=== PATIENT | male | born 1985 | race Two or more races ===

== ENCOUNTER 2017-06-02 10:09 | Inpatient (IN) | payer OTHER ==
[~2017-06-02] VITALS: Ht 154.9 cm; Wt 86.2 kg
[2017-06-02] VITALS (12 sets, daily range): BP systolic 87–104; BP diastolic 48–61
[2017-06-02] MEDS ORDERED: ELIQUIS5 MG PO (10:28)
[2017-06-02 10:52] LABS: MEAN CORPUSCULAR HEMOGLOBIN 24.9 PG (27.0-31.0); MEAN CORPUSCULAR HGB CONC 30.9 G/DL (32.0-36.0); MEAN CORPUSCULAR VOLUME 81 FL (80-99); MEAN PLATELET VOLUME 7.6 FL (6.5-10.1); PLATELET COUNT 169 K/UL (150-450); RED BLOOD COUNT 4.99 M/UL (4.70-6.10); RED CELL DISTRIBUTION WIDTH 14.1 % (11.6-14.8); WHITE BLOOD COUNT 7.2 K/UL (4.8-10.8)
[2017-06-02 11:01] LABS: ALANINE AMINOTRANSFERASE 10 U/L (12-78); ALBUMIN/GLOBULIN RATIO 0.7 (1.0-2.7); ANION GAP 11 mmol/L (5-15); ASPARTATE AMINO TRANSFERASE 19 U/L (15-37); CALCIUM 8.6 MG/DL (8.5-10.1); CARBON DIOXIDE 23 MMOL/L (21-32); CHLORIDE 103 MMOL/L (98-107); CREATININE 1.1 MG/DL (0.55-1.30); GLOMERULAR FILTRATION RATE > 60 mL/min (>60); LIPASE 90 U/L (73-393); POTASSIUM 4.3 MMOL/L (3.5-5.1); SODIUM 137 MMOL/L (136-145); TOTAL PROTEIN 6.9 G/DL (6.4-8.2)
--- NOTE | 2017-06-02 11:08 | Emergency Room Report ---
History of Present Illness General Chief Complaint: Flu Like Symptoms Source: Patient Present Illness HPI Patient presents emergency department today complaining of fever body aches and chills. Patient has a history of spina bifida. Patient does self catheterizations. He states that he might have injured his urethra yesterday trying to catheterize himself. Today he tried to catheterize himself in the morning and has some bleeding back and urine output. Unfortunately he presents now complaining of fever and and suprapubic discomfort. We attempted to do a in and out catheter and there was significant blood and resistance. No other complaints are noted. Symptoms noted to be moderate to severe.No other modifying factors. No other associated signs and symptoms. No other complaints were noted. Allergies: Coded Allergies: LATEX (Verified Allergy, Unknown, 06/02/17) Patient History Past Medical History: other - spina bifida Past Surgical History: none Pertinent Family History: none Social History: Denies: smoking, alcohol use, drug use Reviewed Nursing Documentation: PMH: Agreed, PSxH: Agreed Nursing Documentation-PMH Past Medical History: No History, Except For Review of Systems All Other Systems: negative except mentioned in HPI Physical Exam Vital Signs Date Time Temp Pulse Resp B/P (MAP) Pulse Ox O2 Delivery O2 Flow Rate FiO2 06/02/17 10:05 100.6 100 18 81/49 96 Room Air Sp02 EP Interpretation: reviewed, normal General Appearance: alert, mild distress Head: normocephalic, atraumatic Eyes: bilateral eye normal inspection ENT: normal ENT inspection, hearing grossly normal, normal voice Neck: normal inspection, full range of motion, supple, no bony tend Respiratory: normal inspection, lungs clear, normal breath sounds, no respiratory distress, no retraction, no wheezing Cardiovascular #1: no edema, tachycardia Gastrointestinal: normal inspection, normal bowel sounds, non tender, soft, no guarding, no hernia Genitourinary: no CVA tenderness Musculoskeletal: other - chronic leg swelling dressing intact Neurologic: normal inspection, alert, responsive, speech normal, other - paraplegic Psychiatric: normal inspection, judgement/insight normal, mood/affect normal Skin: normal inspection, normal color, other - chronic lowerextremity rashes Procedures Critical Care Time Critical Care Time Patient had a critical medical condition which untreated could potentially result in life or limb threatening injury. Total critical care time excluding procedures was approximately 45 minutes. Medical Decision Making Diagnostic Impression: Primary Impression: Severe sepsis Additional Impressions: Urinary retention Spina bifida ER Course Patient presents emergency department today complaining of urinary retention fever bodyaches. Differential considerations include sepsis, septic shock, UTI just to name a few.Given the severity of the patient's presentation I felt this is a highly complex patient. This patient required extensive workup. Patient' s laboratory workup shows evidence UTI. Initially was very difficult to pass a Finley but however with some persistence we're able to pass a Finley. We did however obtain a urology consult. Patient had good urine output. Patient was tachycardic and hypotensive therefore patient was given fluid boluses blood cultures were obtained patient was started on IV antibiotics. Patient's lactic acid level was elevated. Therefore a repeat Dr. Garner level was ordered and patient had a repeat exam which showed improve perfusion. Patient had good blood pressure improvement with fluid boluses. However given severe patient presentation patient will require admission to the intensive care unit. Case was discussed with Dr. Bee for admission. Patient will be admitted to ICU for further treatment. Patient required a PICC line placement. It was ordered. Patient was completely awake and it was felt that doing a central line on him likely will be uncomfortable and that patient could be better served by PICC line as patient is to prophylaxis at this time. Labs Test 06/02/17 10:20 06/02/17 11:50 06/02/17 12:10 White Blood Count 7.2 K/UL (4.8-10.8) Red Blood Count 4.99 M/UL (4.70-6.10) Hemoglobin 12.4 G/DL (14.2-18.0) Hematocrit 40.2 % (42.0-52.0) Mean Corpuscular Volume 81 FL (80-99) Mean Corpuscular Hemoglobin 24.9 PG (27.0-31.0) Mean Corpuscular Hemoglobin Concent 30.9 G/DL (32.0-36.0) Red Cell Distribution Width 14.1 % (11.6-14.8) Platelet Count 169 K/UL (150-450) Mean Platelet Volume 7.6 FL (6.5-10.1) Neutrophils (%) (Auto) % (45.0-75.0) Lymphocytes (%) (Auto) % (20.0-45.0) Monocytes (%) (Auto) % (1.0-10.0) Eosinophils (%) (Auto) % (0.0-3.0) Basophils (%) (Auto) % (0.0-2.0) Differential Total Cells Counted 100 Neutrophils % (Manual) 73 % (45-75) Lymphocytes % (Manual) 2 % (20-45) Monocytes % (Manual) 4 % (1-10) Eosinophils % (Manual) 0 % (0-3) Basophils % (Manual) 0 % (0-2) Band Neutrophils 21 % (0-8) Platelet Estimate Adequate Platelet Morphology Normal Hypochromasia 1+ Sodium Level 137 MMOL/L (136-145) Potassium Level 4.3 MMOL/L (3.5-5.1) Chloride Level 103 MMOL/L (98-107) Carbon Dioxide Level 23 MMOL/L (21-32) Anion Gap 11 mmol/L (5-15) Blood Urea Nitrogen 27 mg/dL (7-18) Creatinine 1.1 MG/DL (0.55-1.30) Estimat Glomerular Filtration Rate > 60 mL/min (>60) Glucose Level 87 MG/DL (74-106) Lactic Acid Level 3.50 mmol/L (0.66-2.22) Calcium Level 8.6 MG/DL (8.5-10.1) Total Bilirubin 0.7 MG/DL (0.2-1.0) Aspartate Amino Transf (AST/SGOT) 19 U/L (15-37) Alanine Aminotransferase (ALT/SGPT) 10 U/L (12-78) Alkaline Phosphatase 96 U/L (46-116) Total Protein 6.9 G/DL (6.4-8.2) Albumin 2.9 G/DL (3.4-5.0) Globulin 4.0 g/dL Albumin/Globulin Ratio 0.7 (1.0-2.7) Lipase 90 U/L (73-393) Urine Color Brown Urine Appearance Cloudy Urine pH 8 (4.5-8.0) Urine Specific [place] 1.010 (1.005-1.035) Urine Protein 3+ (NEGATIVE) Urine Glucose (UA) Negative (NEGATIVE) Urine Ketones 1+ (NEGATIVE) Urine Occult Blood 5+ (NEGATIVE) Urine Nitrite Positive (NEGATIVE) Urine Bilirubin Negative (NEGATIVE) Urine Urobilinogen Normal MG/DL (0.0-1.0) Urine Leukocyte Esterase 3+ (NEGATIVE) Urine RBC Tntc /HPF (0 - 0) Urine WBC 20-30 /HPF (0 - 0) Urine Squamous Epithelial Cells Occasional /LPF Urine Bacteria Moderate /HPF (NONE) EKG Diagnostic Results Rate: tachycardiac Rhythm: NSR ST Segments: no acute changes Rhythm Strip Diag. Results EP Interpretation: yes Rate: 133 Rhythm: no PVC's, no ectopy, other - sinus tachycardi Chest X-Ray Diagnostic Results Chest X-Ray Diagnostic Results : Chest X-Ray Ordered: Yes # of Views/Limited/Complete: 1 View Indication: Chest Pain EP Interpretation: Yes Interpretation: no consolidation, no effusion, no pneumothorax, no acute cardiopulmonary disease Impression: No acute disease Last Vital Signs Date Time Temp Pulse Resp B/P (MAP) Pulse Ox O2 Delivery O2 Flow Rate FiO2 06/02/17 11:00 139 18 Room Air 06/02/17 11:00 99.7 87/61 96 Status: improved Disposition: ADMITTED INPATIENT Condition: Critical JESSE OTT M.D. Jun 02, 2017 11:08
[2017-06-02 11:12] LABS: REFLEX LACTIC ACID YES OR NO YES
[2017-06-02] MEDS ORDERED: cefTRIAXone 1 GM in NS 55 ML IVPB ONE (11:15)
[2017-06-02] MEDS ORDERED: Azithromycin 500 MG in D5W 275 ML IVPB ONE (11:15)
[2017-06-02 11:34] LABS: BAND NEUTROPHILS % (MANUAL) 21 % (0-8); BASOPHILS % (MANUAL) 0 % (0-2); EOSINOPHILS % (MANUAL) 0 % (0-3); HYPOCHROMASIA 1+; LYMPHOCYTES % (MANUAL) 2 % (20-45); NEUTROPHILS % (MANUAL) 73 % (45-75); PLATELET ESTIMATE ADEQUATE; PLATELET MORPHOLOGY NORMAL; TOTAL CELLS COUNTED 100
[2017-06-02] MEDS ORDERED: Azithromycin 500mg Inj IV ONE (11:57)
[2017-06-02 12:13] LABS: APPEARANCE,URINE CLOUDY; KETONES,URINE 1+ (NEGATIVE); LEUKOCYTE ESTERASE ,URINE 3+ (NEGATIVE); NITRITE,URINE POSITIVE (NEGATIVE); PH,URINE 8 (4.5-8.0); PROTEIN,URINE 3+ (NEGATIVE); UROBILINOGEN,URINE NORMAL MG/DL (0.0-1.0)
[2017-06-02 12:16] LABS: RBC,URINE TNTC /HPF (0 - 0); SQUAMOUS EPITHELIAL CELL,UR OCCASIONAL /LPF (NONE/OCC); WBC,URINE 20-30 /HPF (0 - 0)
[2017-06-02 12:17] LABS: BACTERIA,URINE MODERATE /HPF
[2017-06-02] MEDS ORDERED: LORazepam Inj 2mg/ml 1ml IV PRN (14:00)
[2017-06-02] MEDS ORDERED: Miralax 17gm pkt ORAL PRN (14:00)
[2017-06-02] MEDS ORDERED: Morphine Sulfate 4mg/ml Inj IVP PRN (14:00)
[2017-06-02] MEDS ORDERED: Albuterol/Ipratropium 3ml neb HHN PRN (14:00)
[2017-06-02] MEDS ORDERED: Amikacin Rx to dose MISC PRN (15:30)
--- NOTE | 2017-06-02 16:58 | Diagnostic Imaging Report ---
Indication: COUGH Technique: One view of the chest Comparison: none Findings: Lungs and pleural spaces are clear. Heart size is normal. Impression: No acute process This agrees with the preliminary interpretation provided by the emergency room physician
[2017-06-02] MEDS ORDERED: Ertapenem 1 GM in NS 55 ML IV SCH ×2 (17:00→20:00)
[2017-06-02] MEDS ORDERED: Vancomycin 1250mg/D5W 250ml 250 ML IVPB ONE (17:00)
[2017-06-02] MEDS ORDERED: Amikacin 1,200 MG in NS 110 ML IV ONE (20:00)
[2017-06-02] MEDS: Heparin 5000 units/ml inj SUBQ SCH (21:04)
[2017-06-02] MEDS ORDERED: Vancomycin 1 GM in D5W 275 ML IV SCH (23:45)
[2017-06-03] VITALS (20 sets, daily range): BP systolic 91–122; BP diastolic 49–80
--- NOTE | 2017-06-03 00:45 | Consultation ---
DATE OF CONSULTATION: 06/02/2017 UROLOGY CONSULTATION: CONSULTING PHYSICIAN: Adriano Quan M.D. ATTENDING/REFERRING PHYSICIAN: Dimitri Polanco M.D. CHIEF COMPLAINT/HISTORY OF PRESENT ILLNESS: I was asked by Dr. Polanco in the emergency room to evaluate this 31-year-old pleasant gentleman with history of spina bifida and neurogenic bladder regarding episode of difficulty catheterizing and urinary tract infection/hematuria. Briefly, the patient has history of spina bifida at age 14 or 15. He underwent a cysto-augmentation with a piece of intestine to increase the capacity of his bladder. The patient's bladder is neurogenic and he self-catheterizes several times a day to drain his bladder. Yesterday, he struggled a bit to catheterize and today when he attempted to do the same, he noted significant bleeding. He presented to the hospital with the same and also evidence of fevers and suprapubic discomfort. Staff was able to pass a coude catheter and he was placed on IV antibiotics and I was asked to evaluate the patient regarding the same. PAST MEDICAL HISTORY: Spina bifida. PAST SURGICAL HISTORY: Cysto-augmentation with a segment of intestine. MEDICATIONS: Please see the chart for current medications, administration details. ALLERGIES: Include latex. SOCIAL HISTORY: Unremarkable tobacco, alcohol, or drug use. FAMILY HISTORY: Noncontributory. REVIEW OF SYSTEMS: A 12-system review of systems is essentially unremarkable outside of what is described above. PHYSICAL EXAMINATION: GENERAL: The patient is a younger gentleman, awake, alert, oriented x4, pleasant, and in no obvious distress. HEENT: NC/AT. EOMI. Oropharynx clear. NECK: Supple. Full range of motion. CHEST: Within normal limits. ABDOMEN: Soft, nontender, and nondistended. EXTREMITIES: Warm and well perfused. No cyanosis, clubbing, or edema. BACK: No CVA tenderness to percussion. NEUROLOGIC: Notable for spina bifida. GENITOURINARY: Uncircumcised male phallus with a Finley catheter in place with somewhat cloudy urine output and significant mucus. There are bilateral descended testes and cord structures with no masses or tenderness to palpation. LABORATORY DATA: White blood cell count 7.2, hematocrit 40.2, platelets 169,000. Sodium 137, potassium 4.3, chloride 103, bicarbonate 23, BUN 27, creatinine 1.1, glucose 87, calcium 8.6. LFTs within normal limits. Urinalysis, specific gravity 1.010, pH 8.0. Dip test notable for 3+ protein, 1+ ketones, 5+ occult blood, positive nitrites, and 3+ leukocyte esterase. Microanalysis with too numerous to count red blood cells per high-powered field, blood cells per high-powered field, and moderate bacteria seen. DIAGNOSTIC IMAGING: Chest x-ray, no significant findings. ASSESSMENT AND PLAN: In summary, the patient is a 31-year-old gentleman with history of spina bifida and neurogenic bladder secondary to same. He underwent cysto-augmentation with a segment of intestine approximately 17 years ago. He self-catheterizes usually without difficulty, but began having problems last night. Today, he noted blood when attempted to catheterize and developed fevers and suprapubic pain and distention. He first came to the emergency room where coude catheter was placed with relief of his distention. He was placed on intravenous antibiotics and fluids and brought to the floor. Physical exam reveals a gentleman with spina bifida with a Finley catheter in place with cloudy urine output with significant mucus. Laboratory data was notable for evidence of urinary tract infection. There is no relevant diagnostic imaging. Today at the bedside, I hand-irrigated the patient's catheter and removed mucus first in the augmented bladder. At the conclusion of irrigation, it was hand-irrigating easily and cleanly with no further mucus. We should continue the patient on intravenous fluids and intravenous antibiotics until his infection is improved at which point, he can be discharged home on intravenous or p.o. antibiotics. The patient can have his catheter out in 2-3 days' time to allow him to resume self-catheterization, but I would leave it in until then to allow the injury from previous attempts of catheterization to heal. Thank you for allowing me to participate in the care of this nice young man. Please do not hesitate to contact me if any questions that you may further have regarding his care. I will be happy to see him with you as needed. Adriano Quan M.D. DR: Jojo JOB#: [id number] CC:
[2017-06-03] MEDS ORDERED: Levophed 4mg/4mL Inj IV ONE (00:58)
--- NOTE | 2017-06-03 04:16 | Emergency Room Report ---
History of Present Illness General Chief Complaint: Flu Like Symptoms Source: Patient, Medical Record Present Illness Allergies: Coded Allergies: LATEX (Verified Allergy, Unknown, 06/02/17) Nursing Documentation-H Past Medical History: No History, Except For Hx Cancer: No Hx Gastrointestinal Problems: No Hx Neurological Problems: No Hx Paralysis: Yes Physical Exam Vital Signs Date Time Temp Pulse Resp B/P (MAP) Pulse Ox O2 Delivery O2 Flow Rate FiO2 06/02/17 10:05 100.6 100 18 81/49 96 Room Air Procedures Central Line Central Line : Consent: Verbal Central Line Lumen: triple Maximal Sterile Barrier Tech: yes cap, yes mask, yes sterile gown, yes sterile gloves, yes large sterile sheet, yes hand hygiene, yes chlorhexidine prep Central Line Postion: femoral (L) Anesthesia: local cc's of anesthesia: 10 Complications: none Attempts: Other - So Patient Tolerated: Well Complications: None Progress Patient was admitted for sepsis and UTI. His blood pressure was low and Dr. Bee order levophed. 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 He is currently taking Elequis. I was called from ICU nurse to place a central line. Patient only one central line in his groin. On the right side he has a large surgical scar over the inguinal area. He has diminished pulse in this area. He has strong pulse in the left femoral area. I attempted to cannulate the left femoral vein. I was able to aspirate easily but unable to thread the guidewire. The blood aspirated clots very easily. Is a remove the guidewire and will be clots at the distal tip. After several attempts, I stop with the central line. 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 Patient blood pressure had already improved by the time I saw the patient. His systolic blood pressure was in the high 90s and low 100. I ordered more IV fluid. Patient may need a PICC line but this can be done in the morning. Doesn't want any line in his neck or chest. Medical Decision Making Diagnostic Impression: Primary Impression: Severe sepsis Additional Impressions: Urinary retention Spina bifida Last Vital Signs Date Time Temp Pulse Resp B/P (MAP) Pulse Ox O2 Delivery O2 Flow Rate FiO2 06/03/17 03:00 119 22 95/50 97 Room Air 06/03/17 00:00 99.1 Disposition: ADMITTED INPATIENT Condition: Critical Referrals: [employer] [facility] AKIRA TURK (PCP) SHIRA MONGE M.D. Jun 03, 2017 04:16
[2017-06-03] MEDS ORDERED: Vancomycin 750mg/NS 250ml 250 ML IVPB SCH (05:00)
[2017-06-03 06:28] LABS: MEAN CORPUSCULAR HEMOGLOBIN 26.9 PG (27.0-31.0); MEAN CORPUSCULAR HGB CONC 33.7 G/DL (32.0-36.0); MEAN CORPUSCULAR VOLUME 80 FL (80-99); MEAN PLATELET VOLUME 7.7 FL (6.5-10.1); PLATELET COUNT 89 K/UL (150-450); RED BLOOD COUNT 3.73 M/UL (4.70-6.10); RED CELL DISTRIBUTION WIDTH 14.2 % (11.6-14.8); WHITE BLOOD COUNT 7.8 K/UL (4.8-10.8)
[2017-06-03] MEDS: Heparin 5000 units/ml inj SUBQ SCH (07:07)
[2017-06-03 08:14] LABS: ALANINE AMINOTRANSFERASE 12 U/L (12-78); ALBUMIN/GLOBULIN RATIO 0.6 (1.0-2.7); ANION GAP 9 mmol/L (5-15); ASPARTATE AMINO TRANSFERASE 20 U/L (15-37); BILIRUBIN,DIRECT < 0.1 MG/DL (0.0-0.3); CALCIUM 7.3 MG/DL (8.5-10.1); CARBON DIOXIDE 21 MMOL/L (21-32); CHLORIDE 110 MMOL/L (98-107); CREATININE 0.7 MG/DL (0.55-1.30); GLOMERULAR FILTRATION RATE > 60 mL/min (>60); POTASSIUM 3.4 MMOL/L (3.5-5.1); SODIUM 140 MMOL/L (136-145); TOTAL PROTEIN 5.3 G/DL (6.4-8.2)
--- NOTE | 2017-06-03 08:24 | History and Physical ---
History of Present Illness General Date patient seen: Jun 02, 2017 Reason for Hospitalization: Flu Like Symptoms Present Illness HPI 31 year old male with hx of spina bifida, bed bound presented to emergency department complaining of fever body aches and chills. He states that he might have injured his urethra yesterday trying to catheterize himself. Today he tried to catheterize himself in the morning and has some bleeding back and urine output. Unfortunately he presents now complaining of fever and and suprapubic discomfort. ER physician attempted to do a in and out catheter and there was significant blood and resistance. Urologist was called already prior to transfer to ICU. Allergies: Coded Allergies: LATEX (Verified Allergy, Unknown, 06/02/17) Medication History Scheduled Apixaban (Eliquis), 7 MG PO DAILY, (Reported) Patient History Healthcare decision maker Resuscitation status Full Code Advanced Directive on File Past Medical/Surgical History Past Medical/Surgical History: (1) Spina bifida (2) Urinary retention Review of Systems Constitutional: Reports: fever, malaise, weakness All Other Systems: negative except mentioned in HPI Physical Exam General Appearance: WD/WN Lines, tubes and drains: peripheral HEENT: normocephalic, atraumatic Neck: non-tender, normal alignment Respiratory/Chest: chest wall non-tender, lungs clear Cardiovascular/Chest: normal peripheral pulses, normal rate, no JVD Abdomen: normal bowel sounds, soft, no organomegaly Genitourinary/Rectal: normal genital exam Last 24 Hour Vital Signs Date Time Temp Pulse Resp B/P (MAP) Pulse Ox O2 Delivery O2 Flow Rate FiO2 06/03/17 08:00 99.0 121 16 106/66 97 Room Air 06/03/17 07:00 111 20 108/63 95 Room Air 06/03/17 06:00 115 21 103/60 95 Room Air 06/03/17 05:00 116 17 91/51 97 Room Air 06/03/17 04:00 98.9 118 14 95/49 97 Room Air 06/03/17 04:00 117 06/03/17 03:00 119 22 95/50 97 Room Air 06/03/17 02:00 120 20 106/63 99 Room Air 06/03/17 01:00 119 22 99/59 100 Room Air 06/03/17 00:00 99.1 113 21 97/58 98 Room Air 06/03/17 00:00 113 06/02/17 23:00 112 19 87/49 97 Room Air 06/02/17 22:00 117 19 88/48 96 Room Air 06/02/17 21:00 117 13 101/52 96 Room Air 06/02/17 20:00 119 06/02/17 20:00 99.5 119 13 98/57 98 Room Air 06/02/17 19:00 118 16 104/60 99 Room Air 06/02/17 18:00 116 16 104/60 99 Room Air 06/02/17 17:00 110 15 96/52 99 Room Air 06/02/17 16:30 112 06/02/17 16:30 97.8 114 14 92/52 99 Room Air 06/02/17 15:37 99.5 111 18 92/60 99 Room Air 06/02/17 14:46 117 18 91/60 99 Room Air 06/02/17 13:22 99.5 131 25 87/57 99 Room Air 06/02/17 12:45 99.5 139 24 95/54 99 Room Air 06/02/17 11:00 139 18 Room Air 06/02/17 11:00 99.7 139 18 87/61 96 Room Air 06/02/17 10:05 100.6 100 18 81/49 96 Room Air Laboratory Tests Test 06/02/17 10:20 06/02/17 11:50 06/02/17 12:10 06/03/17 05:40 White Blood Count 7.2 K/UL (4.8-10.8) 7.8 K/UL (4.8-10.8) Red Blood Count 4.99 M/UL (4.70-6.10) 3.73 M/UL (4.70-6.10) L Hemoglobin 12.4 G/DL (14.2-18.0) L 10.0 G/DL (14.2-18.0) L Hematocrit 40.2 % (42.0-52.0) L 29.8 % (42.0-52.0) L Mean Corpuscular Volume 81 FL (80-99) 80 FL (80-99) Mean Corpuscular Hemoglobin 24.9 PG (27.0-31.0) L 26.9 PG (27.0-31.0) L Mean Corpuscular Hemoglobin Concent 30.9 G/DL (32.0-36.0) L 33.7 G/DL (32.0-36.0) Red Cell Distribution Width 14.1 % (11.6-14.8) 14.2 % (11.6-14.8) Platelet Count 169 K/UL (150-450) 89 K/UL (150-450) L Mean Platelet Volume 7.6 FL (6.5-10.1) 7.7 FL (6.5-10.1) Neutrophils (%) (Auto) % (45.0-75.0) % (45.0-75.0) Lymphocytes (%) (Auto) % (20.0-45.0) % (20.0-45.0) Monocytes (%) (Auto) % (1.0-10.0) % (1.0-10.0) Eosinophils (%) (Auto) % (0.0-3.0) % (0.0-3.0) Basophils (%) (Auto) % (0.0-2.0) % (0.0-2.0) Differential Total Cells Counted 100 Neutrophils % (Manual) 73 % (45-75) Lymphocytes % (Manual) 2 % (20-45) L Monocytes % (Manual) 4 % (1-10) Eosinophils % (Manual) 0 % (0-3) Basophils % (Manual) 0 % (0-2) Band Neutrophils 21 % (0-8) H Platelet Estimate Adequate Platelet Morphology Normal Hypochromasia 1+ Sodium Level 137 MMOL/L (136-145) 140 MMOL/L (136-145) Potassium Level 4.3 MMOL/L (3.5-5.1) 3.4 MMOL/L (3.5-5.1) L Chloride Level 103 MMOL/L (98-107) 110 MMOL/L (98-107) H Carbon Dioxide Level 23 MMOL/L (21-32) 21 MMOL/L (21-32) Anion Gap 11 mmol/L (5-15) 9 mmol/L (5-15) Blood Urea Nitrogen 27 mg/dL (7-18) H 10 mg/dL (7-18) Creatinine 1.1 MG/DL (0.55-1.30) 0.7 MG/DL (0.55-1.30) Estimat Glomerular Filtration Rate > 60 mL/min (>60) > 60 mL/min (>60) Glucose Level 87 MG/DL (74-106) 99 MG/DL (74-106) Lactic Acid Level 3.50 mmol/L (0.66-2.22) H 1.20 mmol/L (0.66-2.22) 0.60 mmol/L (0.66-2.22) L Calcium Level 8.6 MG/DL (8.5-10.1) 7.3 MG/DL (8.5-10.1) L Total Bilirubin 0.7 MG/DL (0.2-1.0) 0.2 MG/DL (0.2-1.0) Aspartate Amino Transf (AST/SGOT) 19 U/L (15-37) 20 U/L (15-37) Alanine Aminotransferase (ALT/SGPT) 10 U/L (12-78) L 12 U/L (12-78) Alkaline Phosphatase 96 U/L (46-116) 57 U/L (46-116) Total Protein 6.9 G/DL (6.4-8.2) 5.3 G/DL (6.4-8.2) L Albumin 2.9 G/DL (3.4-5.0) L 2.0 G/DL (3.4-5.0) L Globulin 4.0 g/dL 3.3 g/dL Albumin/Globulin Ratio 0.7 (1.0-2.7) L 0.6 (1.0-2.7) L Lipase 90 U/L (73-393) Urine Color Brown Urine Appearance Cloudy Urine pH 8 (4.5-8.0) Urine Specific [place] 1.010 (1.005-1.035) Urine Protein 3+ (NEGATIVE) H Urine Glucose (UA) Negative (NEGATIVE) Urine Ketones 1+ (NEGATIVE) H Urine Occult Blood 5+ (NEGATIVE) H Urine Nitrite Positive (NEGATIVE) H Urine Bilirubin Negative (NEGATIVE) Urine Urobilinogen Normal MG/DL (0.0-1.0) Urine Leukocyte Esterase 3+ (NEGATIVE) H Urine RBC Tntc /HPF (0 - 0) H Urine WBC 20-30 /HPF (0 - 0) H Urine Squamous Epithelial Cells Occasional /LPF Urine Bacteria Moderate /HPF (NONE) H Direct Bilirubin < 0.1 MG/DL (0.0-0.3) Height (Feet): 5 Height (Inches): 1.00 Weight (Pounds): 175 Medications Current Medications Medications (Trade) Dose Ordered Sig/Charmaine Route PRN Reason Start Time Stop Time Status Last Admin Dose Admin Acetaminophen (Tylenol) 650 mg Q4H PRN ORAL fever>100.5 06/02/17 14:00 07/02/17 13:59 Albuterol/ Ipratropium (Albuterol/ Ipratropium) 3 ml Q4H PRN HHN Shortness of Breath 06/02/17 14:00 06/07/17 13:59 Amikacin Protocol (Amikacin pharmacy to dose) 1 ea DAILYPRN PRN MISC PRN RX TO DOSE PROTOCOL 06/02/17 15:30 07/02/17 15:29 Ertapenem 1 gm/ Sodium Chloride 55 ml @ 110 mls/hr Q24H IV 06/02/17 20:00 06/07/17 19:59 06/02/17 17:28 Heparin Sodium (Porcine) (Heparin 5000 units/ml) 5,000 units EVERY 12 HOURS SUBQ 06/02/17 21:00 07/02/17 20:59 06/02/17 21:04 Lorazepam (Ativan 2mg/ml 1ml) 2 mg Q2H PRN IV For Anxiety 06/02/17 14:00 06/09/17 13:59 Morphine Sulfate (Morphine Sulfate) 4 mg Q4H PRN IVP Severe Pain (Pain Scale 7-10) 06/02/17 14:00 06/09/17 13:59 Norepinephrine Bitartrate 4 mg/ Dextrose 254 ml @ 0 mls/hr Q24H IV 06/02/17 14:00 07/02/17 13:59 Ondansetron HCl (Zofran) 4 mg Q6H PRN IVP Nausea & Vomiting 06/02/17 14:00 07/02/17 13:59 Pantoprazole (Protonix) 40 mg DAILY IVP 06/03/17 09:00 07/03/17 08:59 Polyethylene Glycol (Miralax) 17 gm DAILYPRN PRN ORAL Constipation 06/02/17 14:00 07/02/17 13:59 Sodium Chloride 1,000 ml @ 100 mls/hr Q10H IVLG 06/02/17 15:00 07/02/17 14:59 06/03/17 00:20 Vancomycin HCl (Vanco rx to dose) 1 ea DAILYPRN PRN MISC PRN RX PROTOCOL 06/02/17 16:00 07/02/17 15:59 Vancomycin/Sodium Chloride 250 ml @ 166.667 mls/hr Q12HR@0500,1700 IVPB 06/03/17 05:00 06/08/17 04:59 06/03/17 04:44 Assessment/Plan Problem List: (1) Severe sepsis ICD Codes: A41.9 - Sepsis, unspecified organism; R65.20 - Severe sepsis without septic shock SNOMED: 14654579 (2) Spina bifida ICD Codes: Q05.9 - Spina bifida, unspecified SNOMED: 61921921 (3) Urinary retention ICD Codes: R33.9 - Retention of urine, unspecified SNOMED: 540168827 Assessment/Plan mcgregor cultures IV abx if fluids check elecltrolyts ID evaluation dvt prophylaxis PEDRO JACOME Jun 03, 2017 08:24
--- NOTE | 2017-06-03 08:27 | Pulmonolgy Critical Care Note ---
Critical Care - Asmt/Plan Problems: (1) Severe sepsis (2) Urinary retention (3) Spina bifida Respiratory: monitor respiratory rate Cardiac: continue to monitor HR/BP Renal: F/U I&O, keep IV fluid Infectious Disease: check cultures Gastrointestinal: continue feedings/current rate Endocrine: monitor blood sugar Neurologic: PRN Ativan, PRN Morphine Prophylaxis: Protonix Time Spent (Minutes): 40 Notes Reviewed: other - urology Discussed with: nurses, consultants Critical Care - Objective Last 24 Hour Vital Signs Date Time Temp Pulse Resp B/P (MAP) Pulse Ox O2 Delivery O2 Flow Rate FiO2 06/03/17 08:00 99.0 121 16 106/66 97 Room Air 06/03/17 07:00 111 20 108/63 95 Room Air 06/03/17 06:00 115 21 103/60 95 Room Air 06/03/17 05:00 116 17 91/51 97 Room Air 06/03/17 04:00 98.9 118 14 95/49 97 Room Air 06/03/17 04:00 117 06/03/17 03:00 119 22 95/50 97 Room Air 06/03/17 02:00 120 20 106/63 99 Room Air 06/03/17 01:00 119 22 99/59 100 Room Air 06/03/17 00:00 99.1 113 21 97/58 98 Room Air 06/03/17 00:00 113 06/02/17 23:00 112 19 87/49 97 Room Air 06/02/17 22:00 117 19 88/48 96 Room Air 06/02/17 21:00 117 13 101/52 96 Room Air 06/02/17 20:00 119 06/02/17 20:00 99.5 119 13 98/57 98 Room Air 06/02/17 19:00 118 16 104/60 99 Room Air 06/02/17 18:00 116 16 104/60 99 Room Air 06/02/17 17:00 110 15 96/52 99 Room Air 06/02/17 16:30 112 06/02/17 16:30 97.8 114 14 92/52 99 Room Air 06/02/17 15:37 99.5 111 18 92/60 99 Room Air 06/02/17 14:46 117 18 91/60 99 Room Air 06/02/17 13:22 99.5 131 25 87/57 99 Room Air 06/02/17 12:45 99.5 139 24 95/54 99 Room Air 06/02/17 11:00 139 18 Room Air 06/02/17 11:00 99.7 139 18 87/61 96 Room Air 06/02/17 10:05 100.6 100 18 81/49 96 Room Air Status: awake Condition: critical Lungs: clear Heart: HR/BP stable Abdomen: soft, non-tender, active bowel sounds Extremities: no C/C/E, edema Decubiti: location Critical Care - Subjective ROS Limited/Unobtainable: No ICU Day: 2 Condition: critical Fluids: NS 100 cc/hour CXR: kelvin Labs: Laboratory Tests Test 06/02/17 10:20 06/02/17 11:50 06/02/17 12:10 06/03/17 05:40 White Blood Count 7.2 K/UL (4.8-10.8) 7.8 K/UL (4.8-10.8) Red Blood Count 4.99 M/UL (4.70-6.10) 3.73 M/UL (4.70-6.10) L Hemoglobin 12.4 G/DL (14.2-18.0) L 10.0 G/DL (14.2-18.0) L Hematocrit 40.2 % (42.0-52.0) L 29.8 % (42.0-52.0) L Mean Corpuscular Volume 81 FL (80-99) 80 FL (80-99) Mean Corpuscular Hemoglobin 24.9 PG (27.0-31.0) L 26.9 PG (27.0-31.0) L Mean Corpuscular Hemoglobin Concent 30.9 G/DL (32.0-36.0) L 33.7 G/DL (32.0-36.0) Red Cell Distribution Width 14.1 % (11.6-14.8) 14.2 % (11.6-14.8) Platelet Count 169 K/UL (150-450) 89 K/UL (150-450) L Mean Platelet Volume 7.6 FL (6.5-10.1) 7.7 FL (6.5-10.1) Neutrophils (%) (Auto) % (45.0-75.0) % (45.0-75.0) Lymphocytes (%) (Auto) % (20.0-45.0) % (20.0-45.0) Monocytes (%) (Auto) % (1.0-10.0) % (1.0-10.0) Eosinophils (%) (Auto) % (0.0-3.0) % (0.0-3.0) Basophils (%) (Auto) % (0.0-2.0) % (0.0-2.0) Differential Total Cells Counted 100 Neutrophils % (Manual) 73 % (45-75) Lymphocytes % (Manual) 2 % (20-45) L Monocytes % (Manual) 4 % (1-10) Eosinophils % (Manual) 0 % (0-3) Basophils % (Manual) 0 % (0-2) Band Neutrophils 21 % (0-8) H Platelet Estimate Adequate Platelet Morphology Normal Hypochromasia 1+ Sodium Level 137 MMOL/L (136-145) 140 MMOL/L (136-145) Potassium Level 4.3 MMOL/L (3.5-5.1) 3.4 MMOL/L (3.5-5.1) L Chloride Level 103 MMOL/L (98-107) 110 MMOL/L (98-107) H Carbon Dioxide Level 23 MMOL/L (21-32) 21 MMOL/L (21-32) Anion Gap 11 mmol/L (5-15) 9 mmol/L (5-15) Blood Urea Nitrogen 27 mg/dL (7-18) H 10 mg/dL (7-18) Creatinine 1.1 MG/DL (0.55-1.30) 0.7 MG/DL (0.55-1.30) Estimat Glomerular Filtration Rate > 60 mL/min (>60) > 60 mL/min (>60) Glucose Level 87 MG/DL (74-106) 99 MG/DL (74-106) Lactic Acid Level 3.50 mmol/L (0.66-2.22) H 1.20 mmol/L (0.66-2.22) 0.60 mmol/L (0.66-2.22) L Calcium Level 8.6 MG/DL (8.5-10.1) 7.3 MG/DL (8.5-10.1) L Total Bilirubin 0.7 MG/DL (0.2-1.0) 0.2 MG/DL (0.2-1.0) Aspartate Amino Transf (AST/SGOT) 19 U/L (15-37) 20 U/L (15-37) Alanine Aminotransferase (ALT/SGPT) 10 U/L (12-78) L 12 U/L (12-78) Alkaline Phosphatase 96 U/L (46-116) 57 U/L (46-116) Total Protein 6.9 G/DL (6.4-8.2) 5.3 G/DL (6.4-8.2) L Albumin 2.9 G/DL (3.4-5.0) L 2.0 G/DL (3.4-5.0) L Globulin 4.0 g/dL 3.3 g/dL Albumin/Globulin Ratio 0.7 (1.0-2.7) L 0.6 (1.0-2.7) L Lipase 90 U/L (73-393) Urine Color Brown Urine Appearance Cloudy Urine pH 8 (4.5-8.0) Urine Specific [place] 1.010 (1.005-1.035) Urine Protein 3+ (NEGATIVE) H Urine Glucose (UA) Negative (NEGATIVE) Urine Ketones 1+ (NEGATIVE) H Urine Occult Blood 5+ (NEGATIVE) H Urine Nitrite Positive (NEGATIVE) H Urine Bilirubin Negative (NEGATIVE) Urine Urobilinogen Normal MG/DL (0.0-1.0) Urine Leukocyte Esterase 3+ (NEGATIVE) H Urine RBC Tntc /HPF (0 - 0) H Urine WBC 20-30 /HPF (0 - 0) H Urine Squamous Epithelial Cells Occasional /LPF Urine Bacteria Moderate /HPF (NONE) H Direct Bilirubin < 0.1 MG/DL (0.0-0.3) PEDRO JACOME Jun 03, 2017 08:27
--- NOTE | 2017-06-03 08:55 | Consultation ---
History of Present Illness General Date patient seen: Jun 03, 2017 Time patient seen: 08:54 Chief Complaint: Flu Like Symptoms Reason for Consultation: UTI Present Illness HPI 31 y/o M with hx of spina bifida, bed bound, neurogenic bladder with hx of Cysto -augmentation with a segment of intestine presented to ED on 06/02 with fever/ chills, body aches and suprapubic discomfort. Patient referred he may had injured his urethra trying to catheterize himself 1 day prior to admission. ER physician tried to do catherization and there was significant blood and resistant. Urology evaluated patient Febrile to 100.6 here, no leukocytosis. u/a with pyuria. started on IV Vanco/ amikacin/ertapenem. Initially some hypotension, resolved with IVFs Allergies: Coded Allergies: LATEX (Verified Allergy, Unknown, 06/02/17) Medication History Scheduled Apixaban (Eliquis), 7 MG PO DAILY, (Reported) Patient History Healthcare decision maker Resuscitation status Full Code Advanced Directive on File Patient History Narrative PMhx: as above Sx: Unremarkable tobacco, alcohol, or drug use. Fhx: non contributory Review of Systems All Other Systems: negative except mentioned in HPI Physical Exam Physical Exam Narrative General Appearance: WD/WN Lines, tubes and drains: peripheral HEENT: normocephalic, atraumatic Neck: non-tender, normal alignment Respiratory/Chest: chest wall non-tender, lungs clear Cardiovascular/Chest: normal peripheral pulses, normal rate, no JVD Abdomen: normal bowel sounds, soft, no organomegaly Genitourinary/Rectal: normal genital exam,ruggiero in place Last 24 Hour Vital Signs Date Time Temp Pulse Resp B/P (MAP) Pulse Ox O2 Delivery O2 Flow Rate FiO2 06/03/17 08:00 99.0 121 16 106/66 97 Room Air 06/03/17 07:00 111 20 108/63 95 Room Air 06/03/17 06:00 115 21 103/60 95 Room Air 06/03/17 05:00 116 17 91/51 97 Room Air 06/03/17 04:00 98.9 118 14 95/49 97 Room Air 06/03/17 04:00 117 06/03/17 03:00 119 22 95/50 97 Room Air 06/03/17 02:00 120 20 106/63 99 Room Air 06/03/17 01:00 119 22 99/59 100 Room Air 06/03/17 00:00 99.1 113 21 97/58 98 Room Air 06/03/17 00:00 113 06/02/17 23:00 112 19 87/49 97 Room Air 06/02/17 22:00 117 19 88/48 96 Room Air 06/02/17 21:00 117 13 101/52 96 Room Air 06/02/17 20:00 119 06/02/17 20:00 99.5 119 13 98/57 98 Room Air 06/02/17 19:00 118 16 104/60 99 Room Air 06/02/17 18:00 116 16 104/60 99 Room Air 06/02/17 17:00 110 15 96/52 99 Room Air 06/02/17 16:30 112 06/02/17 16:30 97.8 114 14 92/52 99 Room Air 06/02/17 15:37 99.5 111 18 92/60 99 Room Air 06/02/17 14:46 117 18 91/60 99 Room Air 06/02/17 13:22 99.5 131 25 87/57 99 Room Air 06/02/17 12:45 99.5 139 24 95/54 99 Room Air 06/02/17 11:00 139 18 Room Air 06/02/17 11:00 99.7 139 18 87/61 96 Room Air 06/02/17 10:05 100.6 100 18 81/49 96 Room Air Laboratory Tests Test 06/02/17 10:20 06/02/17 11:50 06/02/17 12:10 06/03/17 05:40 White Blood Count 7.2 K/UL (4.8-10.8) 7.8 K/UL (4.8-10.8) Red Blood Count 4.99 M/UL (4.70-6.10) 3.73 M/UL (4.70-6.10) L Hemoglobin 12.4 G/DL (14.2-18.0) L 10.0 G/DL (14.2-18.0) L Hematocrit 40.2 % (42.0-52.0) L 29.8 % (42.0-52.0) L Mean Corpuscular Volume 81 FL (80-99) 80 FL (80-99) Mean Corpuscular Hemoglobin 24.9 PG (27.0-31.0) L 26.9 PG (27.0-31.0) L Mean Corpuscular Hemoglobin Concent 30.9 G/DL (32.0-36.0) L 33.7 G/DL (32.0-36.0) Red Cell Distribution Width 14.1 % (11.6-14.8) 14.2 % (11.6-14.8) Platelet Count 169 K/UL (150-450) 89 K/UL (150-450) L Mean Platelet Volume 7.6 FL (6.5-10.1) 7.7 FL (6.5-10.1) Neutrophils (%) (Auto) % (45.0-75.0) % (45.0-75.0) Lymphocytes (%) (Auto) % (20.0-45.0) % (20.0-45.0) Monocytes (%) (Auto) % (1.0-10.0) % (1.0-10.0) Eosinophils (%) (Auto) % (0.0-3.0) % (0.0-3.0) Basophils (%) (Auto) % (0.0-2.0) % (0.0-2.0) Differential Total Cells Counted 100 Neutrophils % (Manual) 73 % (45-75) Lymphocytes % (Manual) 2 % (20-45) L Monocytes % (Manual) 4 % (1-10) Eosinophils % (Manual) 0 % (0-3) Basophils % (Manual) 0 % (0-2) Band Neutrophils 21 % (0-8) H Platelet Estimate Adequate Platelet Morphology Normal Hypochromasia 1+ Sodium Level 137 MMOL/L (136-145) 140 MMOL/L (136-145) Potassium Level 4.3 MMOL/L (3.5-5.1) 3.4 MMOL/L (3.5-5.1) L Chloride Level 103 MMOL/L (98-107) 110 MMOL/L (98-107) H Carbon Dioxide Level 23 MMOL/L (21-32) 21 MMOL/L (21-32) Anion Gap 11 mmol/L (5-15) 9 mmol/L (5-15) Blood Urea Nitrogen 27 mg/dL (7-18) H 10 mg/dL (7-18) Creatinine 1.1 MG/DL (0.55-1.30) 0.7 MG/DL (0.55-1.30) Estimat Glomerular Filtration Rate > 60 mL/min (>60) > 60 mL/min (>60) Glucose Level 87 MG/DL (74-106) 99 MG/DL (74-106) Lactic Acid Level 3.50 mmol/L (0.66-2.22) H 1.20 mmol/L (0.66-2.22) 0.60 mmol/L (0.66-2.22) L Calcium Level 8.6 MG/DL (8.5-10.1) 7.3 MG/DL (8.5-10.1) L Total Bilirubin 0.7 MG/DL (0.2-1.0) 0.2 MG/DL (0.2-1.0) Aspartate Amino Transf (AST/SGOT) 19 U/L (15-37) 20 U/L (15-37) Alanine Aminotransferase (ALT/SGPT) 10 U/L (12-78) L 12 U/L (12-78) Alkaline Phosphatase 96 U/L (46-116) 57 U/L (46-116) Total Protein 6.9 G/DL (6.4-8.2) 5.3 G/DL (6.4-8.2) L Albumin 2.9 G/DL (3.4-5.0) L 2.0 G/DL (3.4-5.0) L Globulin 4.0 g/dL 3.3 g/dL Albumin/Globulin Ratio 0.7 (1.0-2.7) L 0.6 (1.0-2.7) L Lipase 90 U/L (73-393) Urine Color Brown Urine Appearance Cloudy Urine pH 8 (4.5-8.0) Urine Specific [place] 1.010 (1.005-1.035) Urine Protein 3+ (NEGATIVE) H Urine Glucose (UA) Negative (NEGATIVE) Urine Ketones 1+ (NEGATIVE) H Urine Occult Blood 5+ (NEGATIVE) H Urine Nitrite Positive (NEGATIVE) H Urine Bilirubin Negative (NEGATIVE) Urine Urobilinogen Normal MG/DL (0.0-1.0) Urine Leukocyte Esterase 3+ (NEGATIVE) H Urine RBC Tntc /HPF (0 - 0) H Urine WBC 20-30 /HPF (0 - 0) H Urine Squamous Epithelial Cells Occasional /LPF Urine Bacteria Moderate /HPF (NONE) H Direct Bilirubin < 0.1 MG/DL (0.0-0.3) reviewed Height (Feet): 5 Height (Inches): 1.00 Weight (Pounds): 175 Medications Current Medications Medications (Trade) Dose Ordered Sig/Charmaine Route PRN Reason Start Time Stop Time Status Last Admin Dose Admin Acetaminophen (Tylenol) 650 mg Q4H PRN ORAL fever>100.5 06/02/17 14:00 07/02/17 13:59 Albuterol/ Ipratropium (Albuterol/ Ipratropium) 3 ml Q4H PRN HHN Shortness of Breath 06/02/17 14:00 06/07/17 13:59 Amikacin Protocol (Amikacin pharmacy to dose) 1 ea DAILYPRN PRN MISC PRN RX TO DOSE PROTOCOL 06/02/17 15:30 07/02/17 15:29 Ertapenem 1 gm/ Sodium Chloride 55 ml @ 110 mls/hr Q24H IV 06/02/17 20:00 06/07/17 19:59 06/02/17 17:28 Heparin Sodium (Porcine) (Heparin 5000 units/ml) 5,000 units EVERY 12 HOURS SUBQ 06/02/17 21:00 07/02/17 20:59 06/02/17 21:04 Lorazepam (Ativan 2mg/ml 1ml) 2 mg Q2H PRN IV For Anxiety 06/02/17 14:00 06/09/17 13:59 Morphine Sulfate (Morphine Sulfate) 4 mg Q4H PRN IVP Severe Pain (Pain Scale 7-10) 06/02/17 14:00 06/09/17 13:59 Norepinephrine Bitartrate 4 mg/ Dextrose 254 ml @ 0 mls/hr Q24H IV 06/02/17 14:00 07/02/17 13:59 Ondansetron HCl (Zofran) 4 mg Q6H PRN IVP Nausea & Vomiting 06/02/17 14:00 07/02/17 13:59 Pantoprazole (Protonix) 40 mg DAILY IVP 06/03/17 09:00 07/03/17 08:59 06/03/17 08:34 Polyethylene Glycol (Miralax) 17 gm DAILYPRN PRN ORAL Constipation 06/02/17 14:00 07/02/17 13:59 Sodium Chloride 1,000 ml @ 100 mls/hr Q10H IVLG 06/02/17 15:00 07/02/17 14:59 06/03/17 00:20 Vancomycin HCl (Vanco rx to dose) 1 ea DAILYPRN PRN MISC PRN RX PROTOCOL 06/02/17 16:00 07/02/17 15:59 Vancomycin HCl 500 mg/Dextrose 110 ml @ 110 mls/hr ONCE ONCE IVPB 06/03/17 09:30 06/03/17 10:29 Vancomycin HCl/ Dextrose 250 ml @ 166.667 mls/hr Q12HR@0800,2000 IVPB 06/03/17 20:00 06/08/17 19:59 Assessment/Plan Assessment/Plan Abx: IV Vancomycin 06/02- IV Amikacin 06/02 IV Ertapenem 06/02- Assesment: Sepsis- 2ry to UTI (after self manipulate catheterization) Low grade fever- 2ry to above -no leukocytosis -u/a wbc 20-30, RBC tntc, nit+, leuk +3; ucx p -Bcx p -CXR: clear lungs Urinary retention Hematuria- traumatic Neurogenic bladder Spina bifida hx of frequent UTIs Plan: -d/c IV Vanco and Amikacin #2 -Continue Ertapenem #2 pending ucx -f/u cx -Monitor CBC/BMP, temperatures Thank you for this consultation. Continue to monitor off abx. Discused with RN, pharmacy staff and Dr Bee. Mitzy Andrade M.D. Jun 03, 2017 08:55
[2017-06-03] MEDS ORDERED: Pantoprazole Inj IVP SCH (09:00)
[2017-06-03] MEDS ORDERED: Vancomycin 500mg/D5W 110ml IVPB ONE ×2 (09:30)
[2017-06-03] MEDS ORDERED: Tubing IV Secondary IV ONE (09:33)
[2017-06-03] MEDS ORDERED: NS Irrig 1000ml ONE ×2 (09:33→16:31)
--- NOTE | 2017-06-03 11:25 | Diagnostic Imaging Report ---
Indication: DYSPNEA Technique: One view of the chest Comparison: 06/02/2017 Findings: Lungs and pleural spaces are clear. Heart size is normal. Impression: No acute process
[2017-06-03] MEDS ORDERED: Albuterol/Ipratropium 3ml neb HHN PRN (19:00)
[2017-06-03] MEDS ORDERED: Morphine Sulfate 4mg/ml Inj IVP PRN (19:00)
[2017-06-03] MEDS ORDERED: LORazepam Inj 2mg/ml 1ml IV PRN (19:00)
[2017-06-03] MEDS ORDERED: Miralax 17gm pkt ORAL PRN (19:00)
[2017-06-03] MEDS ORDERED: Ertapenem 1 GM in NS 55 ML IV SCH (20:00)
[2017-06-03] MEDS ORDERED: Vancomycin 1250mg/D5W 250ml 250 ML IVPB SCH (20:00)
[2017-06-03] MEDS ORDERED: Heparin 5000 units/ml inj SUBQ SCH (21:00)
[2017-06-04] VITALS (7 sets, daily range): BP systolic 117–133; BP diastolic 65–87
[2017-06-04 06:12] LABS: BASOPHILS % (AUTO) 0.3 % (0.0-2.0); EOSINOPHILS % (AUTO) 2.9 % (0.0-3.0); LYMPHOCYTES % (AUTO) 20.3 % (20.0-45.0); MEAN CORPUSCULAR HGB CONC 33.9 G/DL (32.0-36.0); MEAN CORPUSCULAR VOLUME 80 FL (80-99); MEAN PLATELET VOLUME 7.8 FL (6.5-10.1); MONOCYTES % (AUTO) 7.7 % (1.0-10.0); NEUTROPHILS % (AUTO) 68.9 % (45.0-75.0); PLATELET COUNT 111 K/UL (150-450); RED BLOOD COUNT 3.97 M/UL (4.70-6.10); WHITE BLOOD COUNT 6.3 K/UL (4.8-10.8)
[2017-06-04 06:55] LABS: ALANINE AMINOTRANSFERASE 12 U/L (12-78); ALBUMIN/GLOBULIN RATIO 0.6 (1.0-2.7); ANION GAP 10 mmol/L (5-15); ASPARTATE AMINO TRANSFERASE 14 U/L (15-37); CALCIUM 8.4 MG/DL (8.5-10.1); CARBON DIOXIDE 23 MMOL/L (21-32); CHLORIDE 112 MMOL/L (98-107); CREATININE 0.7 MG/DL (0.55-1.30); GLOMERULAR FILTRATION RATE > 60 mL/min (>60); POTASSIUM 3.2 MMOL/L (3.5-5.1); SODIUM 145 MMOL/L (136-145); TOTAL PROTEIN 5.6 G/DL (6.4-8.2)
[2017-06-04] MEDS ORDERED: Pantoprazole Inj IVP SCH (09:00)
--- NOTE | 2017-06-04 09:08 | Pulmonology Progress Note ---
Assessment/Plan Problems: (1) Severe sepsis (2) Spina bifida (3) Urinary retention Assessment/Plan improving On meropenem continue iv fluids keep in [place] as long as tachycardic dc home when BP better, afebrile and tachycardia resolved. Subjective Constitutional: Reports: no symptoms HEENT: Repors: no symptoms Respiratory: Reports: no symptoms Allergies: Coded Allergies: LATEX (Verified Allergy, Unknown, 06/02/17) Objective Last 24 Hour Vital Signs Date Time Temp Pulse Resp B/P (MAP) Pulse Ox O2 Delivery O2 Flow Rate FiO2 06/04/17 08:56 108 06/04/17 08:08 99.5 102 20 121/82 96 Room Air 06/04/17 07:32 109 18 Room Air 06/04/17 04:00 98.2 94 20 133/87 96 Room Air 06/04/17 04:00 105 06/04/17 00:00 99.9 110 20 126/81 96 Room Air 06/04/17 00:00 110 06/03/17 20:05 113 20 Room Air 06/03/17 20:00 100.0 98 20 121/65 98 Room Air 06/03/17 20:00 111 06/03/17 18:00 110 20 122/80 98 Room Air 06/03/17 17:00 106 20 107/73 98 Room Air 06/03/17 16:00 98.7 109 16 107/73 98 Room Air 06/03/17 16:00 104 06/03/17 15:00 104 20 96/61 98 Room Air 06/03/17 14:00 105 19 105/64 95 Room Air 06/03/17 13:00 103 19 104/73 95 Room Air 06/03/17 12:00 98.9 109 17 103/58 98 Room Air 06/03/17 12:00 109 06/03/17 11:00 116 20 93/61 95 Room Air 06/03/17 10:00 107 19 95/56 95 Room Air Objective still tachycardic with temp of 99.5 General Appearance: WD/WN HEENT: normocephalic, anicteric Respiratory/Chest: chest wall non-tender, lungs clear Abdomen: normal bowel sounds, soft, non tender Genitourinary: normal external genitalia Skin: no rash Microbiology Date/Time Source Procedure Growth Status 06/02/17 10:30 Blood Blood Culture - Preliminary NO GROWTH AFTER 24 HOURS Resulted 06/02/17 10:20 Blood Blood Culture - Preliminary NO GROWTH AFTER 24 HOURS Resulted 06/02/17 13:15 Nasal Nares MRSA Culture - Final NO METHICILLIN RESISTANT STAPH AUREUS... Complete 06/02/17 11:50 Urine,Clean Catch Urine Culture - Final Enterococcus Faecalis Complete Laboratory Tests 06/04/17 05:30: White Blood Count 6.3, Red Blood Count 3.97L, Hemoglobin 10.7L, Hematocrit 31.5L , Mean Corpuscular Volume 80, Mean Corpuscular Hemoglobin 27.0, Mean Corpuscular Hemoglobin Concent 33.9, Red Cell Distribution Width 14.0, Platelet Count 111L, Mean Platelet Volume 7.8, Neutrophils (%) (Auto) 68.9, Lymphocytes ( %) (Auto) 20.3, Monocytes (%) (Auto) 7.7, Eosinophils (%) (Auto) 2.9, Basophils (%) (Auto) 0.3, Sodium Level 145, Potassium Level 3.2L, Chloride Level 112H, Carbon Dioxide Level 23, Anion Gap 10, Blood Urea Nitrogen 5L, Creatinine 0.7, Estimat Glomerular Filtration Rate > 60, Glucose Level 102, Calcium Level 8.4L, Total Bilirubin 0.2, Aspartate Amino Transf (AST/SGOT) 14L, Alanine Aminotransferase (ALT/SGPT) 12, Alkaline Phosphatase 57, Pro-B-Type Natriuretic Peptide 811H, Total Protein 5.6L, Albumin 2.0L, Globulin 3.6, Albumin/Globulin Ratio 0.6L Current Medications Medications (Trade) Dose Ordered Sig/Charmaine Route PRN Reason Start Time Stop Time Status Last Admin Dose Admin Acetaminophen (Tylenol) 650 mg Q4H PRN ORAL fever>100.5 06/03/17 19:00 07/02/17 18:59 Albuterol/ Ipratropium (Albuterol/ Ipratropium) 3 ml Q4H PRN HHN Shortness of Breath 06/03/17 19:00 06/07/17 18:59 Ertapenem 1 gm/ Sodium Chloride 55 ml @ 110 mls/hr Q24H IV 06/03/17 20:00 06/07/17 19:59 06/03/17 20:33 Lorazepam (Ativan 2mg/ml 1ml) 2 mg Q2H PRN IV For Anxiety 06/03/17 19:00 06/09/17 18:59 Morphine Sulfate (Morphine Sulfate) 4 mg Q4H PRN IVP Severe Pain (Pain Scale 7-10) 06/03/17 19:00 06/09/17 18:59 Ondansetron HCl (Zofran) 4 mg Q6H PRN IVP Nausea & Vomiting 06/03/17 19:00 07/02/17 18:59 Pantoprazole (Protonix) 40 mg DAILY IVP 06/04/17 09:00 07/03/17 08:59 06/04/17 08:40 Polyethylene Glycol (Miralax) 17 gm DAILYPRN PRN ORAL Constipation 06/03/17 19:00 07/03/17 18:59 Sodium Chloride 1,000 ml @ 100 mls/hr Q10H IVLG 06/03/17 19:30 07/02/17 19:29 06/04/17 06:01 PEDRO JACOME Jun 04, 2017 09:08
--- NOTE | 2017-06-04 10:40 | Diagnostic Imaging Report ---
Clinical history: Acute torus of breath Technique: Portable AP chest radiograph was obtained. Comparison: 06/03/17 Findings: There is no significant interval change in the interval, allowing for differences in technique and positioning. Impression: No evidence of acute disease in the chest.
[2017-06-04] MEDS ORDERED: Morphine Sulfate 4mg/ml Inj IVP PRN (12:00)
[2017-06-04] MEDS ORDERED: Albuterol/Ipratropium 3ml neb HHN PRN (12:00)
[2017-06-04] MEDS ORDERED: Miralax 17gm pkt ORAL PRN (12:00)
[2017-06-04] MEDS ORDERED: LORazepam Inj 2mg/ml 1ml IV PRN (12:00)
[2017-06-04] MEDS: Vancomycin 1250mg/D5W 250ml 250 ML IVPB SCH (14:47)
--- NOTE | 2017-06-04 17:52 | Cardiology Report ---
APPROVED REPORT EXAM: Two-dimensional and M-mode echocardiogram with Doppler and color Doppler. INDICATION LV function M-Mode DIMENSIONS IVSd0.9 (0.7-1.1cm)Left Atrium (MM)3.6 (1.6-4.0cm) LVDd4.5 (3.5-5.6cm)Aortic Root3.1 (2.0-3.7cm) PWd1.0 (0.7-1.1cm)Aortic Cusp Exc.2.0 (1.5-2.0cm) LVDs2.8 (2.5-4.0cm) PWs1.5 cm Normal left ventricular chamber size, systolic function and wall motion. Left ventricular ejection fraction estimated to be 60 %. Borderline mild left ventricular hypertrophy by 2-D. Anterior Echo-free space, may be due to pericardial fat or effusion. All other cardiac chamber sizes are within normal limits. Mild focal aortic valve sclerosis with adequate cusp excursion. Mildly thickened mitral valve leaflets with normal excursion. Mild mitral annulus and aortic root calcification. Normal pulmonic valve structure. Normal tricuspid valve structure. IVC at normal size with physiologic collapse. A color flow and spectral Doppler study was performed and revealed: Mild aortic regurgitation. Trace mitral regurgitation. Trace to mild tricuspid regurgitation. Tricuspid systolic velocities suggests peak right ventricular systolic pressure of 24 mmHg.
--- NOTE | 2017-06-04 18:39 | Cardiology Report ---
APPROVED REPORT EKG Measurement Heart [id number] Sinus tachycardia Otherwise normal ECG
[2017-06-04] MEDS ORDERED: Ertapenem 1 GM in NS 55 ML IV SCH (20:00)
[2017-06-05] VITALS: BP 126/72
[2017-06-05] MEDS: Vancomycin 1250mg/D5W 250ml 250 ML IVPB SCH ×2 (02:01→15:13)
[2017-06-05 04:00] VITALS: BP 127/79
[2017-06-05 08:00] VITALS: BP 159/84
[2017-06-05] MEDS: Pantoprazole Inj IVP SCH (08:20)
[2017-06-05 08:30] LABS: BASOPHILS % (AUTO) 0.5 % (0.0-2.0); EOSINOPHILS % (AUTO) 4.8 % (0.0-3.0); LYMPHOCYTES % (AUTO) 28.9 % (20.0-45.0); MEAN CORPUSCULAR HEMOGLOBIN 25.7 PG (27.0-31.0); MEAN CORPUSCULAR VOLUME 80 FL (80-99); MONOCYTES % (AUTO) 9.5 % (1.0-10.0); NEUTROPHILS % (AUTO) 56.4 % (45.0-75.0); PLATELET COUNT 132 K/UL (150-450); RED BLOOD COUNT 4.46 M/UL (4.70-6.10); RED CELL DISTRIBUTION WIDTH 14.2 % (11.6-14.8); WHITE BLOOD COUNT 5.4 K/UL (4.8-10.8)
[2017-06-05 08:43] LABS: ALANINE AMINOTRANSFERASE 15 U/L (12-78); ALBUMIN/GLOBULIN RATIO 0.6 (1.0-2.7); ANION GAP 8 mmol/L (5-15); ASPARTATE AMINO TRANSFERASE 21 U/L (15-37); CALCIUM 8.8 MG/DL (8.5-10.1); CARBON DIOXIDE 27 MMOL/L (21-32); CHLORIDE 108 MMOL/L (98-107); CREATININE 0.7 MG/DL (0.55-1.30); GLOMERULAR FILTRATION RATE > 60 mL/min (>60); MAGNESIUM 1.3 MG/DL (1.8-2.4); PHOSPHORUS 3.2 MG/DL (2.5-4.9); POTASSIUM 3.8 MMOL/L (3.5-5.1); SODIUM 143 MMOL/L (136-145); TOTAL PROTEIN 6.4 G/DL (6.4-8.2)
[2017-06-05] MEDS ORDERED: NS Irrig 1000ml ONE (10:44)
--- NOTE | 2017-06-05 11:01 | Infectious Diseases Prog Note ---
Assessment/Plan Assessment/Plan Abx: IV Vancomycin 06/02-06/03; 06/04- IV Amikacin 06/02 IV Ertapenem 06/02-06/04 Assesment: Sepsis- 2ry to UTI and bacteremia (after self manipulate catheterization) ; sepsis resolved Enterococccal UTI with strep bacteremia (suspect organisms is blood is also Enterococcus) -u/a wbc 20-30, RBC tntc, nit+, leuk +3; ucx >100K E. fecalis ( S. Vanco, AMP, levo) -Bcx 06/02 2/4 Strep sp; 06/04 Bcx p Low grade fever- 2ry to above- improving -no leukocytosis -CXR: clear lungs Urinary retention Hematuria- traumatic Neurogenic bladder Spina bifida hx of frequent UTIs Plan: -Continue IV Vancomycin #4 awaiting ID and sensi strep BCx; may be able to switch to Ampicillin if susceptible; expected duration: 14 days from 1st neg Bcx -06/04 SP Ertapenem #3 -06/02 SP Amikacin #1 -f/u repeat Bcx -Monitor CBC/BMP, temperatures Thank you for this consultation. Will continue to follow along with you. Discused with RN, and micro lab staff. Subjective Allergies: Coded Allergies: LATEX (Verified Allergy, Unknown, 06/02/17) Subjective afebrile in 36hrs ucx with e fecalis Bacteremic with strep sp, likely enterococus as well Objective Vital Signs Last 24 Hour Vital Signs Date Time Temp Pulse Resp B/P (MAP) Pulse Ox O2 Delivery O2 Flow Rate FiO2 06/05/17 08:15 97 18 Room Air 06/05/17 08:00 98.2 85 20 159/84 97 Room Air 06/05/17 04:00 98.0 75 18 127/79 98 Room Air 06/05/17 00:00 98.4 81 20 126/72 96 Room Air 06/04/17 21:26 96 18 Room Air 06/04/17 20:00 99.5 80 20 117/77 97 Room Air 06/04/17 16:00 98.6 65 20 118/74 98 Room Air 06/04/17 13:15 78 18 128/66 99 Room Air 06/04/17 11:33 99.4 83 20 119/65 97 Room Air Height (Feet): 5 Height (Inches): 1.00 Weight (Pounds): 178 Objective General Appearance: WD/WN Lines, tubes and drains: peripheral HEENT: normocephalic, atraumatic Neck: non-tender, normal alignment Respiratory/Chest: chest wall non-tender, lungs clear Cardiovascular/Chest: normal peripheral pulses, normal rate, no JVD Abdomen: normal bowel sounds, soft, no organomegaly Genitourinary/Rectal: normal genital exam,ruggiero in place Microbiology Date/Time Source Procedure Growth Status 06/02/17 13:15 Nasal Nares MRSA Culture - Final NO METHICILLIN RESISTANT STAPH AUREUS... Complete 06/02/17 11:50 Urine,Clean Catch Urine Culture - Final Enterococcus Faecalis Complete 06/02/17 21:34 Buttock Right Gram Stain - Final Resulted 06/02/17 21:34 Buttock Right Wound Culture Pending Resulted 06/02/17 13:15 Rectum VRE Culture - Final NO VANCOMYCIN RESISTANT ENTEROCOCCUS ... Complete Laboratory Tests Test 06/05/17 07:45 White Blood Count 5.4 K/UL (4.8-10.8) Red Blood Count 4.46 M/UL (4.70-6.10) L Hemoglobin 11.4 G/DL (14.2-18.0) L Hematocrit 35.7 % (42.0-52.0) L Mean Corpuscular Volume 80 FL (80-99) Mean Corpuscular Hemoglobin 25.7 PG (27.0-31.0) L Mean Corpuscular Hemoglobin Concent 32.0 G/DL (32.0-36.0) Red Cell Distribution Width 14.2 % (11.6-14.8) Platelet Count 132 K/UL (150-450) L Mean Platelet Volume 8.0 FL (6.5-10.1) Neutrophils (%) (Auto) 56.4 % (45.0-75.0) Lymphocytes (%) (Auto) 28.9 % (20.0-45.0) Monocytes (%) (Auto) 9.5 % (1.0-10.0) Eosinophils (%) (Auto) 4.8 % (0.0-3.0) H Basophils (%) (Auto) 0.5 % (0.0-2.0) Sodium Level 143 MMOL/L (136-145) Potassium Level 3.8 MMOL/L (3.5-5.1) Chloride Level 108 MMOL/L (98-107) H Carbon Dioxide Level 27 MMOL/L (21-32) Anion Gap 8 mmol/L (5-15) Blood Urea Nitrogen 4 mg/dL (7-18) L Creatinine 0.7 MG/DL (0.55-1.30) Estimat Glomerular Filtration Rate > 60 mL/min (>60) Glucose Level 98 MG/DL (74-106) Calcium Level 8.8 MG/DL (8.5-10.1) Phosphorus Level 3.2 MG/DL (2.5-4.9) Magnesium Level 1.3 MG/DL (1.8-2.4) L Total Bilirubin 0.3 MG/DL (0.2-1.0) Aspartate Amino Transf (AST/SGOT) 21 U/L (15-37) Alanine Aminotransferase (ALT/SGPT) 15 U/L (12-78) Alkaline Phosphatase 69 U/L (46-116) Total Protein 6.4 G/DL (6.4-8.2) Albumin 2.3 G/DL (3.4-5.0) L Globulin 4.1 g/dL Albumin/Globulin Ratio 0.6 (1.0-2.7) L Current Medications Medications (Trade) Dose Ordered Sig/Charmaine Route PRN Reason Start Time Stop Time Status Last Admin Dose Admin Acetaminophen (Tylenol) 650 mg Q4H PRN ORAL fever>100.5 06/04/17 12:00 07/02/17 11:59 Albuterol/ Ipratropium (Albuterol/ Ipratropium) 3 ml Q4H PRN HHN Shortness of Breath 06/04/17 12:00 06/07/17 11:59 Lorazepam (Ativan 2mg/ml 1ml) 2 mg Q2H PRN IV For Anxiety 06/04/17 12:00 06/09/17 11:59 Morphine Sulfate (Morphine Sulfate) 4 mg Q4H PRN IVP Severe Pain (Pain Scale 7-10) 06/04/17 12:00 06/09/17 11:59 Ondansetron HCl (Zofran) 4 mg Q6H PRN IVP Nausea & Vomiting 06/04/17 12:00 07/02/17 11:59 Pantoprazole (Protonix) 40 mg DAILY IVP 06/05/17 09:00 07/03/17 08:59 06/05/17 08:20 Polyethylene Glycol (Miralax) 17 gm DAILYPRN PRN ORAL Constipation 06/04/17 12:00 07/03/17 11:59 Sodium Chloride 1,000 ml @ 100 mls/hr Q10H IVLG 06/04/17 12:00 07/02/17 11:59 06/05/17 02:00 Vancomycin HCl (Vanco rx to dose) 1 ea DAILY PRN MISC Per rx protocol 06/04/17 13:00 07/04/17 12:59 Vancomycin HCl/ Dextrose 250 ml @ 166.667 mls/hr Q12HR@0200,1400 IVPB 06/04/17 14:30 06/09/17 14:29 06/05/17 02:01 Mitzy Andrade M.D. Jun 05, 2017 11:01
[2017-06-05 12:00] VITALS: BP 116/80
--- NOTE | 2017-06-05 12:47 | Wound Care Consultation ---
Wound Assessment Wound Assessment #1: Wound Number: 1 Wound Present on Admission: Yes New Wound: No Status Change of Wound: No Wound Location Body Site Modif: mid Wound Location Body Site: other - sacrococygeal extending to the right and left buttocks Wound Type: pressure ulcer Raquel Test: Does not Raquel Pressure Ulcer Stage: Unstageable Wound Thickness: Full Thickness Wound Length: 13.5 Wound Width: 10.5 Wound Depth: utd Percent of Wound Rivers/Red: 30 Percent of Wound Bed Yellow/Wh: 70 Wound Drainage Description: Serosanguineous Wound Drainage Amount: Copious Wound Drainage Odor: None/Absent Tissue Surrounding Wound: Macerated Wound General Appearance: Reddened - yellow, Draining Wound Assessment #2: Wound Number: 2 Wound Present on Admission: Yes New Wound: No Status Change of Wound: No Wound Location Body Site Modif: right Wound Location Body Site: heel Wound Type: pressure ulcer Raquel Test: Does not Raquel Pressure Ulcer Stage: Unstageable Wound Thickness: Full Thickness Wound Length: 3.0 Wound Width: 3.5 Wound Depth: utd Percent of Wound Bed Yellow/Wh: 80 Percent of Wound Black/Brown: 20 Wound Drainage Amount: None Wound Drainage Odor: None/Absent Tissue Surrounding Wound: Macerated Wound General Appearance: Draining Wound Assessment #3: Wound Number: 3 Wound Present on Admission: Yes New Wound: No Status Change of Wound: No Wound Location Body Site Modif: left, plantar Wound Type: other - dry and flaky skin Raquel Test: Does not Raquel Wound Drainage Amount: None Wound Drainage Odor: None/Absent Wound General Appearance: Open to air, Clean/Dry Wound Assessment #4: Wound Number: 4 Wound Present on Admission: Yes New Wound: No Status Change of Wound: No Wound Location Body Site Modif: left, medial Wound Location Body Site: malleolus/ankle Wound Type: pressure ulcer Raquel Test: Does not Raquel Pressure Ulcer Stage: Unstageable Wound Thickness: Full Thickness Wound Length: 2.5 Wound Width: 2.0 Wound Depth: utd Percent of Wound Rivers/Red: 50 Percent of Wound Bed Yellow/Wh: 50 Wound Drainage Description: Serosanguineous Wound Drainage Amount: Scant Wound Drainage Odor: None/Absent Tissue Surrounding Wound: Indurated Wound General Appearance: Reddened, Draining Wound Comment #1 Sacrococcygeal unstageable pressure ulcer that extended to left and right buttocks #2 Right heel undtageable pressure ulcer #3 Left plantar foot dry and flaky skin #4 Left medial malleolus unstageable pressure ulcer Recommendation -Local wound care per protocol -Keep clean and dry -Turn and reposition -Optimize nutrition -Offload both heels -Heel protector on both heels -Low air loss mattress -Assess and f/u accordingly for any changes LYNNETTE CHEN RN Jun 05, 2017 12:47
[2017-06-05] MEDS ORDERED: Tubing IV Secondary IV ONE (13:50)
--- NOTE | 2017-06-05 14:45 | Pulmonology Progress Note ---
Assessment/Plan Problems: (1) Severe sepsis (2) Spina bifida (3) Urinary retention Assessment/Plan improving On meropenem continue iv fluids keep in [place] as long as tachycardic dc home when BP better, afebrile and tachycardia resolved. Subjective ROS Limited/Unobtainable: No Constitutional: Reports: no symptoms Respiratory: Reports: no symptoms Allergies: Coded Allergies: LATEX (Verified Allergy, Unknown, 06/02/17) Objective Last 24 Hour Vital Signs Date Time Temp Pulse Resp B/P (MAP) Pulse Ox O2 Delivery O2 Flow Rate FiO2 06/05/17 08:15 97 18 Room Air 06/05/17 08:00 98.2 85 20 159/84 97 Room Air 06/05/17 04:00 98.0 75 18 127/79 98 Room Air 06/05/17 00:00 98.4 81 20 126/72 96 Room Air 06/04/17 21:26 96 18 Room Air 06/04/17 20:00 99.5 80 20 117/77 97 Room Air 06/04/17 16:00 98.6 65 20 118/74 98 Room Air General Appearance: WD/WN HEENT: normocephalic, atraumatic Respiratory/Chest: chest wall non-tender, lungs clear Cardiovascular: normal peripheral pulses, regular rhythm Abdomen: normal bowel sounds, no organomegaly Extremities: no cyanosis Skin: no rash Neurologic/Psychiatric: metallurgical tester II-XII grossly normal Microbiology Date/Time Source Procedure Growth Status 06/02/17 21:34 Buttock Right Gram Stain - Final Resulted 06/02/17 21:34 Wound Culture - Preliminary Gram Negative Bacillus 1 Resulted Laboratory Tests 06/05/17 07:45: White Blood Count 5.4, Red Blood Count 4.46L, Hemoglobin 11.4L, Hematocrit 35.7L , Mean Corpuscular Volume 80, Mean Corpuscular Hemoglobin 25.7L, Mean Corpuscular Hemoglobin Concent 32.0, Red Cell Distribution Width 14.2, Platelet Count 132L, Mean Platelet Volume 8.0, Neutrophils (%) (Auto) 56.4, Lymphocytes ( %) (Auto) 28.9, Monocytes (%) (Auto) 9.5, Eosinophils (%) (Auto) 4.8H, Basophils (%) (Auto) 0.5, Sodium Level 143, Potassium Level 3.8, Chloride Level 108H, Carbon Dioxide Level 27, Anion Gap 8, Blood Urea Nitrogen 4L, Creatinine 0.7, Estimat Glomerular Filtration Rate > 60, Glucose Level 98, Calcium Level 8.8, Phosphorus Level 3.2, Magnesium Level 1.3L, Total Bilirubin 0.3, Aspartate Amino Transf (AST/SGOT) 21, Alanine Aminotransferase (ALT/SGPT) 15, Alkaline Phosphatase 69, Total Protein 6.4, Albumin 2.3L, Globulin 4.1, Albumin/Globulin Ratio 0.6L Current Medications Medications (Trade) Dose Ordered Sig/Charmaine Route PRN Reason Start Time Stop Time Status Last Admin Dose Admin Acetaminophen (Tylenol) 650 mg Q4H PRN ORAL fever>100.5 06/04/17 12:00 07/02/17 11:59 Albuterol/ Ipratropium (Albuterol/ Ipratropium) 3 ml Q4H PRN HHN Shortness of Breath 06/04/17 12:00 06/07/17 11:59 Lorazepam (Ativan 2mg/ml 1ml) 2 mg Q2H PRN IV For Anxiety 06/04/17 12:00 06/09/17 11:59 Morphine Sulfate (Morphine Sulfate) 4 mg Q4H PRN IVP Severe Pain (Pain Scale 7-10) 06/04/17 12:00 06/09/17 11:59 Ondansetron HCl (Zofran) 4 mg Q6H PRN IVP Nausea & Vomiting 06/04/17 12:00 07/02/17 11:59 Pantoprazole (Protonix) 40 mg DAILY IVP 06/05/17 09:00 07/03/17 08:59 06/05/17 08:20 Polyethylene Glycol (Miralax) 17 gm DAILYPRN PRN ORAL Constipation 06/04/17 12:00 07/03/17 11:59 Sodium Chloride 1,000 ml @ 100 mls/hr Q10H IVLG 06/04/17 12:00 07/02/17 11:59 06/05/17 02:00 Vancomycin HCl (Vanco rx to dose) 1 ea DAILY PRN MISC Per rx protocol 06/04/17 13:00 07/04/17 12:59 Vancomycin HCl/ Dextrose 250 ml @ 166.667 mls/hr Q12HR@0200,1400 IVPB 06/04/17 14:30 06/09/17 14:29 06/05/17 02:01 Vitamin A/Vitamin D (A & D Oint) 1 applic EVERY 12 HOURS [facility] 06/05/17 21:00 07/05/17 20:59 PEDRO JACOME Jun 05, 2017 14:45
[2017-06-05 16:00] VITALS: BP 114/64
[2017-06-05 20:00] VITALS: BP 124/72
[2017-06-05] MEDS: Vitamin A&D Oint 2oz Tube TOPIC SCH (21:29)
[2017-06-06] VITALS: BP 124/70
[2017-06-06] MEDS: Vancomycin 1250mg/D5W 250ml IVPB SCH ×2 (03:36→12:17)
[2017-06-06 04:00] VITALS: BP 130/86
[2017-06-06 08:00] VITALS: BP 126/78
[2017-06-06] MEDS: Vitamin A&D Oint 2oz Tube TOPIC SCH ×2 (09:48→21:39)
[2017-06-06] MEDS: Pantoprazole Inj IVP SCH (09:48)
[2017-06-06 12:00] VITALS: BP 125/73
--- NOTE | 2017-06-06 13:28 | Pulmonology Progress Note ---
Assessment/Plan Problems: (1) Severe sepsis (2) Spina bifida (3) Urinary retention Assessment/Plan improving continue iv fluids keep in [place] as long as tachycardic dc home when BP better, afebrile and tachycardia resolved. awaiting ID security sales consultant's recommendations about home abx. Subjective ROS Limited/Unobtainable: No Constitutional: Reports: no symptoms HEENT: Repors: no symptoms Respiratory: Reports: no symptoms Allergies: Coded Allergies: LATEX (Verified Allergy, Unknown, 06/02/17) Objective Last 24 Hour Vital Signs Date Time Temp Pulse Resp B/P (MAP) Pulse Ox O2 Delivery O2 Flow Rate FiO2 06/06/17 12:00 98.2 74 19 125/73 99 Room Air 06/06/17 08:00 99.1 86 24 126/78 97 Room Air 06/06/17 07:17 85 18 Room Air 06/06/17 04:00 99.1 85 21 130/86 96 Room Air 06/06/17 00:00 99.0 79 20 124/70 97 Room Air 06/05/17 20:00 99.0 87 20 124/72 97 Room Air 06/05/17 19:05 89 18 Room Air 06/05/17 16:00 98.2 78 20 114/64 98 Room Air General Appearance: WD/WN HEENT: normocephalic, atraumatic Respiratory/Chest: chest wall non-tender, lungs clear Cardiovascular: normal peripheral pulses, regular rhythm Abdomen: normal bowel sounds, soft, non tender Genitourinary: normal external genitalia Skin: no rash, no lesions Microbiology Date/Time Source Procedure Growth Status 06/04/17 20:57 Blood Blood Culture - Preliminary NO GROWTH AFTER 24 HOURS Resulted 06/04/17 20:50 Blood Blood Culture - Preliminary NO GROWTH AFTER 24 HOURS Resulted Laboratory Tests 06/06/17 01:40: Vancomycin Level Trough 8.4 Current Medications Medications (Trade) Dose Ordered Sig/Charmaine Route PRN Reason Start Time Stop Time Status Last Admin Dose Admin Acetaminophen (Tylenol) 650 mg Q4H PRN ORAL fever>100.5 06/04/17 12:00 07/02/17 11:59 Albuterol/ Ipratropium (Albuterol/ Ipratropium) 3 ml Q4H PRN HHN Shortness of Breath 06/04/17 12:00 06/07/17 11:59 Lorazepam (Ativan 2mg/ml 1ml) 2 mg Q2H PRN IV For Anxiety 06/04/17 12:00 06/09/17 11:59 Morphine Sulfate (Morphine Sulfate) 4 mg Q4H PRN IVP Severe Pain (Pain Scale 7-10) 06/04/17 12:00 06/09/17 11:59 Ondansetron HCl (Zofran) 4 mg Q6H PRN IVP Nausea & Vomiting 06/04/17 12:00 07/02/17 11:59 Pantoprazole (Protonix) 40 mg DAILY IVP 06/05/17 09:00 07/03/17 08:59 06/06/17 09:48 Polyethylene Glycol (Miralax) 17 gm DAILYPRN PRN ORAL Constipation 06/04/17 12:00 07/03/17 11:59 Sodium Chloride 1,000 ml @ 100 mls/hr Q10H IVLG 06/04/17 12:00 07/02/17 11:59 06/06/17 03:37 Vancomycin HCl (Vanco rx to dose) 1 ea DAILY PRN MISC Per rx protocol 06/04/17 13:00 07/04/17 12:59 Vancomycin HCl/ Dextrose 250 ml @ 166.667 mls/hr Q8H IVPB 06/06/17 03:00 06/11/17 02:59 06/06/17 12:17 Vitamin A/Vitamin D (A & D Oint) 1 applic EVERY 12 HOURS TOPIC 06/05/17 21:00 07/05/17 20:59 06/06/17 09:48 PEDRO JACOME Jun 06, 2017 13:28
--- NOTE | 2017-06-06 14:45 | Infectious Diseases Prog Note ---
Assessment/Plan Assessment/Plan IV Vancomycin 06/02-06/03; 06/04- IV Amikacin 06/02 IV Ertapenem 06/02-06/04 Assesment: Sepsis- 2ry to UTI and bacteremia (after self manipulate catheterization) ; sepsis resolved Enterococccal UTI with strep bacteremia (suspect organisms is blood is also Enterococcus) -u/a wbc 20-30, RBC tntc, nit+, leuk +3; ucx >100K E. fecalis ( S. Vanco, AMP, levo) -Bcx 06/02 2/ Strep sp; 06/04 Bcx p Low grade fever- 2ry to above- improving -no leukocytosis -CXR: clear lungs Urinary retention Hematuria- traumatic Neurogenic bladder Spina bifida hx of frequent UTIs Plan: - Start PO Amoxicillin d# - DC IV Vancomycin # 5 -06/04 SP Ertapenem #3 -06/02 SP Amikacin #1 -Monitor CBC/BMP, temperatures Subjective Constitutional: Denies: no symptoms, fever, chills, fatigue, anorexia, drenching sweats, other Allergies: Coded Allergies: LATEX (Verified Allergy, Unknown, 06/02/17) Objective Vital Signs Last 24 Hour Vital Signs Date Time Temp Pulse Resp B/P (MAP) Pulse Ox O2 Delivery O2 Flow Rate FiO2 06/06/17 12:00 98.2 74 19 125/73 99 Room Air 06/06/17 08:00 99.1 86 24 126/78 97 Room Air 06/06/17 07:17 85 18 Room Air 06/06/17 04:00 99.1 85 21 130/86 96 Room Air 06/06/17 00:00 99.0 79 20 124/70 97 Room Air 06/05/17 20:00 99.0 87 20 124/72 97 Room Air 06/05/17 19:05 89 18 Room Air 06/05/17 16:00 98.2 78 20 114/64 98 Room Air Height (Feet): 5 Height (Inches): 1.00 Weight (Pounds): 178 HEENT: mucous membranes moist Respiratory/Chest: respiratory distress Cardiovascular: regular rhythm Abdomen: non distended Microbiology Date/Time Source Procedure Growth Status 06/04/17 20:57 Blood Blood Culture - Preliminary NO GROWTH AFTER 24 HOURS Resulted 06/04/17 20:50 Blood Blood Culture - Preliminary NO GROWTH AFTER 24 HOURS Resulted Laboratory Tests Test 06/06/17 01:40 Vancomycin Level Trough 8.4 ug/mL (5.0-12.0) Current Medications Medications (Trade) Dose Ordered Sig/Charmaine Route PRN Reason Start Time Stop Time Status Last Admin Dose Admin Acetaminophen (Tylenol) 650 mg Q4H PRN ORAL fever>100.5 06/04/17 12:00 07/02/17 11:59 Albuterol/ Ipratropium (Albuterol/ Ipratropium) 3 ml Q4H PRN HHN Shortness of Breath 06/04/17 12:00 06/07/17 11:59 Lorazepam (Ativan 2mg/ml 1ml) 2 mg Q2H PRN IV For Anxiety 06/04/17 12:00 06/09/17 11:59 Morphine Sulfate (Morphine Sulfate) 4 mg Q4H PRN IVP Severe Pain (Pain Scale 7-10) 06/04/17 12:00 06/09/17 11:59 Ondansetron HCl (Zofran) 4 mg Q6H PRN IVP Nausea & Vomiting 06/04/17 12:00 07/02/17 11:59 Pantoprazole (Protonix) 40 mg DAILY IVP 06/05/17 09:00 07/03/17 08:59 06/06/17 09:48 Polyethylene Glycol (Miralax) 17 gm DAILYPRN PRN ORAL Constipation 06/04/17 12:00 07/03/17 11:59 Sodium Chloride 1,000 ml @ 100 mls/hr Q10H IVLG 06/04/17 12:00 07/02/17 11:59 06/06/17 03:37 Vancomycin HCl (Vanco rx to dose) 1 ea DAILY PRN MISC Per rx protocol 06/04/17 13:00 07/04/17 12:59 Vancomycin HCl/ Dextrose 250 ml @ 166.667 mls/hr Q8H IVPB 06/06/17 03:00 06/11/17 02:59 06/06/17 12:17 Vitamin A/Vitamin D (A & D Oint) 1 applic EVERY 12 HOURS TOPIC 06/05/17 21:00 07/05/17 20:59 06/06/17 09:48 GUY DEL VALLE M.D. Jun 06, 2017 14:45
[2017-06-06 16:00] VITALS: BP 118/68
[2017-06-06] MEDS ORDERED: Tubing IV Secondary IV ONE (16:25)
[2017-06-06] MEDS ORDERED: Sterile Water Irrig 1000ml IRRIG ONE (16:25)
[2017-06-06 20:00] VITALS: BP 125/71
[2017-06-06] MEDS: Amoxicillin 500mg cap ORAL SCH (21:38)
[2017-06-07] VITALS: BP 123/70
[2017-06-07 04:00] VITALS: BP 129/74
[2017-06-07] MEDS: Amoxicillin 500mg cap ORAL SCH ×2 (05:04→14:42)
[2017-06-07 06:27] LABS: BASOPHILS % (AUTO) 0.4 % (0.0-2.0); EOSINOPHILS % (AUTO) 5.7 % (0.0-3.0); LYMPHOCYTES % (AUTO) 39.3 % (20.0-45.0); MEAN CORPUSCULAR HEMOGLOBIN 25.8 PG (27.0-31.0); MEAN CORPUSCULAR VOLUME 80 FL (80-99); MEAN PLATELET VOLUME 7.1 FL (6.5-10.1); MONOCYTES % (AUTO) 8.9 % (1.0-10.0); NEUTROPHILS % (AUTO) 45.6 % (45.0-75.0); PLATELET COUNT 197 K/UL (150-450); RED BLOOD COUNT 4.56 M/UL (4.70-6.10); RED CELL DISTRIBUTION WIDTH 14.1 % (11.6-14.8); WHITE BLOOD COUNT 6.2 K/UL (4.8-10.8)
[2017-06-07 07:04] LABS: ALANINE AMINOTRANSFERASE 19 U/L (12-78); ALBUMIN/GLOBULIN RATIO 0.6 (1.0-2.7); ANION GAP 8 mmol/L (5-15); ASPARTATE AMINO TRANSFERASE 17 U/L (15-37); CALCIUM 8.6 MG/DL (8.5-10.1); CARBON DIOXIDE 27 MMOL/L (21-32); CHLORIDE 106 MMOL/L (98-107); CREATININE 0.6 MG/DL (0.55-1.30); GLOMERULAR FILTRATION RATE > 60 mL/min (>60); MAGNESIUM 1.5 MG/DL (1.8-2.4); PHOSPHORUS 3.1 MG/DL (2.5-4.9); POTASSIUM 3.7 MMOL/L (3.5-5.1); SODIUM 141 MMOL/L (136-145); TOTAL PROTEIN 6.6 G/DL (6.4-8.2)
[2017-06-07 07:50] VITALS: BP 123/77
[2017-06-07] MEDS: Vitamin A&D Oint 2oz Tube TOPIC SCH (08:31)
[2017-06-07] MEDS: Pantoprazole Inj IVP SCH (08:32)
--- NOTE | 2017-06-07 09:24 | Infectious Diseases Prog Note ---
Assessment/Plan Assessment/Plan IV Vancomycin 06/02-06/03; 06/04- IV Amikacin 06/02 IV Ertapenem 06/02-06/04 Assesment: Sepsis- 2ry to UTI and bacteremia (after self manipulate catheterization) ; sepsis resolved Enterococccal UTI with strep bacteremia (suspect organisms is blood is also Enterococcus) -u/a wbc 20-30, RBC tntc, nit+, leuk +3; ucx >100K E. fecalis ( S. Vanco, AMP, levo) -Bcx 06/02 2/4 Strep sp; 06/04 Bcx p Low grade fever- SP -no leukocytosis -CXR: clear lungs Urinary retention Hematuria- traumatic Neurogenic bladder Spina bifida hx of frequent UTIs Plan: - cont PO Amoxicillin d# - DC IV Vancomycin # 5 -06/04 SP Ertapenem #3 -06/02 SP Amikacin #1 -Monitor CBC/BMP, temperatures Subjective Allergies: Coded Allergies: LATEX (Verified Allergy, Unknown, 06/02/17) Subjective comfortable Objective Vital Signs Last 24 Hour Vital Signs Date Time Temp Pulse Resp B/P (MAP) Pulse Ox O2 Delivery O2 Flow Rate FiO2 06/07/17 08:34 100 18 Room Air 06/07/17 07:50 98.2 93 18 123/77 98 Room Air 06/07/17 04:00 98.2 82 20 129/74 97 Room Air 06/07/17 00:00 98.0 87 18 123/70 96 Room Air 06/06/17 20:00 98.6 88 18 125/71 96 Room Air 06/06/17 19:00 74 18 Room Air 06/06/17 16:00 98.2 18 118/68 100 Room Air 06/06/17 12:00 98.2 74 19 125/73 99 Room Air Height (Feet): 5 Height (Inches): 1.00 Weight (Pounds): 190 HEENT: anicteric Respiratory/Chest: no respiratory distress Cardiovascular: regularly irregular Abdomen: non distended Microbiology Date/Time Source Procedure Growth Status 06/04/17 20:57 Blood Blood Culture - Preliminary NO GROWTH AFTER 48 HOURS Resulted 06/04/17 20:50 Blood Blood Culture - Preliminary NO GROWTH AFTER 48 HOURS Resulted Laboratory Tests Test 06/07/17 04:30 White Blood Count 6.2 K/UL (4.8-10.8) Red Blood Count 4.56 M/UL (4.70-6.10) L Hemoglobin 11.8 G/DL (14.2-18.0) L Hematocrit 36.7 % (42.0-52.0) L Mean Corpuscular Volume 80 FL (80-99) Mean Corpuscular Hemoglobin 25.8 PG (27.0-31.0) L Mean Corpuscular Hemoglobin Concent 32.0 G/DL (32.0-36.0) Red Cell Distribution Width 14.1 % (11.6-14.8) Platelet Count 197 K/UL (150-450) Mean Platelet Volume 7.1 FL (6.5-10.1) Neutrophils (%) (Auto) 45.6 % (45.0-75.0) Lymphocytes (%) (Auto) 39.3 % (20.0-45.0) Monocytes (%) (Auto) 8.9 % (1.0-10.0) Eosinophils (%) (Auto) 5.7 % (0.0-3.0) H Basophils (%) (Auto) 0.4 % (0.0-2.0) Sodium Level 141 MMOL/L (136-145) Potassium Level 3.7 MMOL/L (3.5-5.1) Chloride Level 106 MMOL/L (98-107) Carbon Dioxide Level 27 MMOL/L (21-32) Anion Gap 8 mmol/L (5-15) Blood Urea Nitrogen 7 mg/dL (7-18) Creatinine 0.6 MG/DL (0.55-1.30) Estimat Glomerular Filtration Rate > 60 mL/min (>60) Glucose Level 90 MG/DL (74-106) Calcium Level 8.6 MG/DL (8.5-10.1) Phosphorus Level 3.1 MG/DL (2.5-4.9) Magnesium Level 1.5 MG/DL (1.8-2.4) L Total Bilirubin 0.2 MG/DL (0.2-1.0) Aspartate Amino Transf (AST/SGOT) 17 U/L (15-37) Alanine Aminotransferase (ALT/SGPT) 19 U/L (12-78) Alkaline Phosphatase 75 U/L (46-116) Total Protein 6.6 G/DL (6.4-8.2) Albumin 2.4 G/DL (3.4-5.0) L Globulin 4.2 g/dL Albumin/Globulin Ratio 0.6 (1.0-2.7) L Current Medications Medications (Trade) Dose Ordered Sig/Charmaine Route PRN Reason Start Time Stop Time Status Last Admin Dose Admin Acetaminophen (Tylenol) 650 mg Q4H PRN ORAL fever>100.5 06/04/17 12:00 07/02/17 11:59 Albuterol/ Ipratropium (Albuterol/ Ipratropium) 3 ml Q4H PRN HHN Shortness of Breath 06/04/17 12:00 06/07/17 11:59 Amoxicillin (Amoxicillin) 500 mg EVERY 8 HOURS ORAL 06/06/17 22:00 06/07/17 23:59 06/07/17 05:04 Amoxicillin (Amoxil) 500 mg EVERY 8 HOURS ORAL 06/08/17 06:00 06/15/17 05:59 Lorazepam (Ativan 2mg/ml 1ml) 2 mg Q2H PRN IV For Anxiety 06/04/17 12:00 06/09/17 11:59 Morphine Sulfate (Morphine Sulfate) 4 mg Q4H PRN IVP Severe Pain (Pain Scale 7-10) 06/04/17 12:00 06/09/17 11:59 Ondansetron HCl (Zofran) 4 mg Q6H PRN IVP Nausea & Vomiting 06/04/17 12:00 07/02/17 11:59 Pantoprazole (Protonix) 40 mg DAILY IVP 06/05/17 09:00 07/03/17 08:59 06/07/17 08:32 Polyethylene Glycol (Miralax) 17 gm DAILYPRN PRN ORAL Constipation 06/04/17 12:00 07/03/17 11:59 Sodium Chloride 1,000 ml @ 100 mls/hr Q10H IVLG 06/04/17 12:00 07/02/17 11:59 06/07/17 04:01 Vitamin A/Vitamin D (A & D Oint) 1 applic EVERY 12 HOURS TOPIC 06/05/17 21:00 07/05/17 20:59 06/07/17 08:31 GUY DEL VALLE M.D. Jun 07, 2017 09:24
[2017-06-07 12:00] VITALS: BP 123/77
[2017-06-07 16:00] VITALS: BP 116/70
--- NOTE | 2017-06-07 16:35 | Pulmonology Progress Note ---
Assessment/Plan Problems: (1) Severe sepsis (2) Spina bifida (3) Urinary retention Assessment/Plan improving awaiting ID financial management consultant's recommendations about home abx. dc home, with ABx recommended by ID Subjective ROS Limited/Unobtainable: No Constitutional: Reports: no symptoms HEENT: Repors: no symptoms Respiratory: Reports: no symptoms Cardiovascular: Reports: no symptoms Allergies: Coded Allergies: LATEX (Verified Allergy, Unknown, 06/02/17) Objective Last 24 Hour Vital Signs Date Time Temp Pulse Resp B/P (MAP) Pulse Ox O2 Delivery O2 Flow Rate FiO2 06/07/17 16:00 99.0 98 20 116/70 97 Room Air 06/07/17 12:00 98.2 93 18 123/77 98 Room Air 06/07/17 08:34 100 18 Room Air 06/07/17 07:50 98.2 93 18 123/77 98 Room Air 06/07/17 04:00 98.2 82 20 129/74 97 Room Air 06/07/17 00:00 98.0 87 18 123/70 96 Room Air 06/06/17 20:00 98.6 88 18 125/71 96 Room Air 06/06/17 19:00 74 18 Room Air Intake and Output 06/07/17 06/08/17 19:00 07:00 Output Total 1200 ml Balance -1200 ml Output Urine Total 1200 ml General Appearance: WD/WN HEENT: normocephalic, atraumatic Respiratory/Chest: chest wall non-tender, lungs clear Cardiovascular: normal peripheral pulses, regular rhythm Abdomen: normal bowel sounds, soft, non tender Genitourinary: normal external genitalia Skin: no lesions Neurologic/Psychiatric: inspector automatic typewriter II-XII grossly normal, alert Lymphatic: no neck adenopathy Microbiology Date/Time Source Procedure Growth Status 06/04/17 20:57 Blood Blood Culture - Preliminary NO GROWTH AFTER 48 HOURS Resulted 06/04/17 20:50 Blood Blood Culture - Preliminary NO GROWTH AFTER 48 HOURS Resulted Laboratory Tests 06/07/17 04:30: White Blood Count 6.2, Red Blood Count 4.56L, Hemoglobin 11.8L, Hematocrit 36.7L , Mean Corpuscular Volume 80, Mean Corpuscular Hemoglobin 25.8L, Mean Corpuscular Hemoglobin Concent 32.0, Red Cell Distribution Width 14.1, Platelet Count 197, Mean Platelet Volume 7.1, Neutrophils (%) (Auto) 45.6, Lymphocytes (% ) (Auto) 39.3, Monocytes (%) (Auto) 8.9, Eosinophils (%) (Auto) 5.7H, Basophils (%) (Auto) 0.4, Sodium Level 141, Potassium Level 3.7, Chloride Level 106, Carbon Dioxide Level 27, Anion Gap 8, Blood Urea Nitrogen 7, Creatinine 0.6, Estimat Glomerular Filtration Rate > 60, Glucose Level 90, Calcium Level 8.6, Phosphorus Level 3.1, Magnesium Level 1.5L, Total Bilirubin 0.2, Aspartate Amino Transf (AST/SGOT) 17, Alanine Aminotransferase (ALT/SGPT) 19, Alkaline Phosphatase 75, Total Protein 6.6, Albumin 2.4L, Globulin 4.2, Albumin/Globulin Ratio 0.6L Current Medications Medications (Trade) Dose Ordered Sig/Charmaine Route PRN Reason Start Time Stop Time Status Last Admin Dose Admin Acetaminophen (Tylenol) 650 mg Q4H PRN ORAL fever>100.5 06/04/17 12:00 07/02/17 11:59 Amoxicillin (Amoxicillin) 500 mg EVERY 8 HOURS ORAL 06/06/17 22:00 06/07/17 23:59 06/07/17 14:42 Amoxicillin (Amoxil) 500 mg EVERY 8 HOURS ORAL 06/08/17 06:00 06/15/17 05:59 Lorazepam (Ativan 2mg/ml 1ml) 2 mg Q2H PRN IV For Anxiety 06/04/17 12:00 06/09/17 11:59 Morphine Sulfate (Morphine Sulfate) 4 mg Q4H PRN IVP Severe Pain (Pain Scale 7-10) 06/04/17 12:00 06/09/17 11:59 Ondansetron HCl (Zofran) 4 mg Q6H PRN IVP Nausea & Vomiting 06/04/17 12:00 07/02/17 11:59 Pantoprazole (Protonix) 40 mg DAILY IVP 06/05/17 09:00 07/03/17 08:59 06/07/17 08:32 Polyethylene Glycol (Miralax) 17 gm DAILYPRN PRN ORAL Constipation 06/04/17 12:00 07/03/17 11:59 Sodium Chloride 1,000 ml @ 100 mls/hr Q10H IVLG 06/04/17 12:00 07/02/17 11:59 06/07/17 04:01 Vitamin A/Vitamin D (A & D Oint) 1 applic EVERY 12 HOURS TOPIC 06/05/17 21:00 07/05/17 20:59 06/07/17 08:31 PEDRO JACOME Jun 07, 2017 16:35
[2017-06-07] MEDS ORDERED: AMOXICILLIN500 MG ORAL (17:26)
[2017-06-07] MEDS ORDERED: AMOXICILLIN125 MG ORAL (17:30)
--- NOTE | 2017-06-08 18:40 | Discharge Summary ---
Discharge Summary Hospital Course Date of Admission Jun 02, 2017 at 12:25 Date of Discharge Jun 07, 2017 at 18:36 Admitting Diagnosis SEPSIS,URINARY RETENTION HPI Ana Olvera is a 31 year old male who was admitted on Jun 02, 2017 at 12: 25 for Sepsis,Urinary Retension Hospital Course [id number] Discharge Discharge Disposition Patient was discharged to Home (01) Discharge Diagnoses: Cierra Gaitan NP Jun 08, 2017 18:39
--- NOTE | 2017-06-09 03:15 | Discharge Summary 2 SIG ---
DATE OF ADMISSION: 06/02/2017 DATE OF DISCHARGE: 06/07/2017 CONSULTANTS: 1. Mitzy Andrade M.D. 2. Adriano Quan M.D. BRIEF HOSPITAL COURSE: The patient is a 31-year-old male with history of spina bifida, bedbound, presented to the emergency department complaining of fever, body aches, and chills. The patient stated that he might have injured his urethra while catheterizing himself. He noted some bleeding with urine. He also was complaining of fever and suprapubic discomfort. On evaluation at ED, workup showed evidence of UTI. Hemoglobin was 12, hematocrit was 40. Lactic acid 3.5. Chest x-ray showed no acute cardiopulmonary disease and EKG was in normal sinus rhythm. Initially, there was difficult time putting in a Finley catheter. Urologist was consulted. ED MD was able to pass Coude catheter with relief of his distention. He was given IV fluids and IV antibiotics and on examination, Finley catheter was in place with cloudy urine output and significant mucus. Hand irrigation done and urine eventually cleared. He was febrile at 100.6 and was started on IV vancomycin, amikacin, and ertapenem. His hypotension resolved with IV hydration. He was downgraded to MARLENA. Blood culture and urine culture showed growth of Enterococcus. Sepsis was secondary to urinary tract infection and bacteremia. He also came in with unstageable pressure ulcers on the sacrococcygeal area, left foot, and left medial malleolus of right heel and left medial malleolus. He was given wound care. Repeat blood cultures did not isolate any growth. He eventually defervesced. He was cleared for discharge. There was no leukocytosis. The patient was advised to continue with p.o. amoxicillin to complete 10-day course of antibiotics. FINAL DIAGNOSES: 1. Severe sepsis. 2. Spina bifida. 3. Urinary retention. 4. Sepsis, secondary to urinary tract infection and bacteremia after self-manipulation with catheterization. 5. Enterococcal urinary tract infection with Staphylococcus bacteremia. 6. Hematuria, secondary to Finley trauma. 7. History of frequent urinary tract infections. 8. Spina bifida. 9. Neurogenic bladder. DISPOSITION: The patient was discharged home. Finley catheter was removed. DISCHARGE MEDICATIONS: Amoxicillin 500 mg q.8 h. to complete 10-day course of antibiotics. Shiva Bee M.D. I have been assigned to dictate discharge summary on this account and I was not involved in the patient's management. Cierra Gaitan N.P. DR: Aimee JOB#: [id number] CC: DINO
== END 2017-06-07 18:36 | disposition home or self-care (01) | DRG 720 ==
LOC: EDBD 10:09 → EMR 11:08 → EDBEDREQSVC 12:17 → ICU 12:25 → EDBEDREQ 13:17 → ICU 17:36 → 2W 06-03 18:50 → 4E 06-04 12:49
DX: A41.2 Sepsis due to unspecified staphylococcus (principal); N31.9 Neuromuscular dysfunction of bladder, unspecified; N39.0 Urinary tract infection, site not specified; Q05.9 Spina bifida, unspecified; R31.9 Hematuria, unspecified; R33.9 Retention of urine, unspecified; R65.20 Severe sepsis without septic shock; B95.2 Enterococcus as the cause of diseases classified elsewhere; Z91.040 Latex allergy status; Z86.718 Personal history of other venous thrombosis and embolism; Z87.440 Personal history of urinary (tract) infections
CPT/HCPCS: 36415; 71010; 80053; 80150; 80202; 81003; 82248; 83605; 83690; 83735; 83880; 84100; 85007; 85025; 87040; 87070; 87081; 87086; 87181; 87205; 93005; 93306; 94664; 99285; J8499